=== PATIENT | male | born 1980 | race Two or more races ===

== ENCOUNTER 2017-07-28 10:17 | Inpatient (IN) | payer OTHER ==
[2017-07-28 11:46] VITALS: BMI 25.8
--- NOTE | 2017-07-28 14:38 | HP ---
CIWA Score - CIWA Score Nausea/Vomitin Muscle Tremors: 3 Anxiety: 3 Agitation: 3 Paroxysmal Sweats: 2 Orientation: 0-Oriented Tacttile Disturbances: 2-Mild Itch/Numbness/Burn Auditory Disturbances: 2-Mild Harshness/Frighten Visual Disturbances: 1-Very Mild Sensitivity Headache: 2-Mild CIWA-Ar Total Score: 21 Admission ROS BHS - HPI Chief Complaint: i need help to stop drinking alcohol,cocaine,marijuana Allergies/Adverse Reactions: Allergies Allergy/AdvReac Type Severity Reaction Status Date / Time No Known Allergies Allergy Verified 07/28/17 14:23 History of Present Illness: this 36 years old male with alcohol,cocaine and marijuana dependence,seeking detox,last treatment [facility] 06/22 bipolar disorder nicotine dependence weight loss no significant period of sobriety Exam Limitations: No Limitations - Ebola screening Have you traveled outside of the country in the last 21 days: No Have you been sick,other than usual withdrawal symptoms: No - Review of Systems Constitutional: Loss of Appetite, Malaise, Night Sweats, Changes in sleep, Weakness, Unintentional Wgt. Loss EENT: reports: Tearing, Nose Congestion Respiratory: reports: No Symptoms reported Cardiac: reports: Palpitations GI: reports: Diarrhea, Nausea, Vomiting, Abdominal cramping : reports: No Symptoms Reported Musculoskeletal: reports: Back Pain, Muscle Pain Integumentary: reports: Dryness Neuro: reports: Headache, Tremors Endocrine: reports: No Symptoms Reported Hematology: reports: No Symptoms Reported Psychiatric: reports: No Sypmtoms Reported, Judgement Intact, Mood/Affect Appropiate, other (bipolar disorder) Patient History - Patient Medical History Hx Anemia: No Hx Asthma: No Hx Chronic Obstructive Pulmonary Disease (COPD): No Hx Cancer: No Hx Cardiac Disorders: No Hx Congestive Heart Failure: No Hx Hypertension: No Hx Hypercholesterolemia: No Hx Pacemaker: No HX Cerebrovascular Accident: No Hx Seizures: No Hx Dementia: No Hx Diabetes: No Hx Gastrointestinal Disorders: No Hx Liver Disease: No Hx Genitourinary Disorders: No Hx Sexually Transmitted Disorders: No Hx Renal Disease (ESRD): No Hx Thyroid Disease: No Hx Human Immunodeficiency Virus (HIV): No (negative last 06/22) Hx Hepatitis C: No Hx Depression: Yes Hx Suicide Attempt: No Hx Bipolar Disorder: Yes Hx Schizophrenia: No Other Medical History: no suicidal,no homicidal - Patient Surgical History Past Surgical History: No Hx Neurologic Surgery: No Hx Cataract Extraction: No Hx Cardiac Surgery: No Hx Lung Surgery: No Hx Breast Surgery: No Hx Breast Biopsy: No Hx Abdominal Surgery: No Hx Appendectomy: No Hx Cholecystectomy: No Hx Genitourinary Surgery: No Hx Section: No Hx Orthopedic Surgery: No Anesthesia Reaction: No - PPD History Previous Implant?: Yes Documented Results: Negative w/o proof Implanted On Prior [facility] Admission?: Yes Date: 10/19/14 PPD to be Administered?: Yes - Smoking Cessation Smoking history: Current every day smoker Have you smoked in the past 12 months: Yes Aproximately how many cigarettes per day: 10 Cigars Per Day: 0 Hx Chewing Tobacco Use: No Initiated information on smoking cessation: Yes 'Breaking Loose' booklet given: 07/28/17 - Substance & Tx. History Hx Alcohol Use: Yes Hx Substance Use: Yes Substance Use Type: Alcohol, Cocaine, Marijuana Hx Substance Use Treatment: Yes ([facility] 06/22) - Substances Abused Alcohol Route: Oral Frequency: Daily Amount used: 2 6PKS BEER Age of first use: 13 Date of Last Use: 07/28/17 Crack Route: Smoking Frequency: Daily Amount used: $100-150 Age of first use: 28 Date of Last Use: 07/27/17 Marijuana/Hashish Route: Smoking Frequency: Daily Amount used: $100 Age of first use: 13 Date of Last Use: 07/28/17 Family Disease History - Family Disease History Family Disease History: [place]: Grandparent, Other: Father (,), Mother ( depression,dsa) Admission Physical Exam S - Vital Signs Vital Signs: Vital Signs - 24 hr 07/28/17 11:44 Temperature 97.1 F L Pulse Rate 88 Respiratory 18 Rate Blood Pressure 114/67 - Physical General Appearance: Yes: Moderate Distress, Tremorous, Irritable, Sweating, Anxious HEENTM: Yes: Within Normal Limits, Normal ENT Inspection, Normocephalic, ELYSE Respiratory: Yes: Lungs Clear, Normal Breath Sounds, No Respiratory Distress Neck: Yes: Within Normal Limits, Supple, Trachea in good position Breast: Yes: Within Normal Limits Cardiology: Yes: Within Normal Limits, Regular Rhythm, Regular Rate, S1, S2 Abdominal: Yes: Normal Bowel Sounds, Non Tender, Flat, Soft, Pulsatile Mass Genitourinary: Yes: Within Normal Limits Back: Yes: Muscle Spasm Extremities: Yes: Normal Range of Motion, Tremors 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, Fully Oriented, Alert, Motor Strength 5/5, Normal Response Integumentary: Yes: Dry Lymphatic: Yes: Within Normal Limits - Diagnostic (1) Alcohol dependence with uncomplicated withdrawal Current Visit: Yes Status: Acute (2) Cannabis dependence Current Visit: No Status: Chronic (3) Cocaine dependence Current Visit: No Status: Chronic (4) Weight loss Current Visit: Yes Status: Acute (5) Nicotine dependence Current Visit: Yes Status: Acute (6) Bipolar disorder Current Visit: Yes Status: Acute Cleared for Admission [facility] - Detox or Rehab [facility] Level of Care: Medically Managed Detox Regimen/Protocol: Librium [facility] Breath Alcohol Content Breath Alcohol Content: 0 Urine Drug Screen - Results Drug Screen Negative: No Urine Drug Screen Results: THC-Marijuana, LEONIDAS-Cocaine, TCA-Tricyclic Antidepress
[2017-07-28] MEDS ORDERED: MENTHOL/PHENOL 1 EACH UD MM PRN (14:46)
[2017-07-28] MEDS ORDERED: MAGNESIUM HYDROX 2400MG/30ML ORAL SUSPENSION 30 ML CUP PO PRN (14:46)
[2017-07-28] MEDS ORDERED: chlordiazePOXIDE HCL 25 MG CAPSULE PO PRN (14:46)
[2017-07-28] MEDS ORDERED: P-EPHED 60MG/TRIPROLIDI 2.5MG TABLET PO PRN (14:46)
[2017-07-28] MEDS ORDERED: ACETAMINOPHEN 325 MG TABLET (FP) PO PRN (14:46)
[2017-07-28] MEDS ORDERED: MAGNESIUM CITRATE 300 ML BOTTLE PO PRN (14:46)
[2017-07-28] MEDS ORDERED: IBUPROFEN 400 MG TABLET (FP) PO PRN (14:46)
[2017-07-28] MEDS ORDERED: guaiFENesin/D-METHORPHAN HB 10 ML UNIT-DOSE CUPS PO PRN (14:46)
[2017-07-28] MEDS ORDERED: LOPERAMIDE HCL 2 MG CAPSULE PO PRN (14:46)
[2017-07-28] MEDS ORDERED: MAG HYDROX/AL HYDROX/SIMETH 30 ML UNIT-DOSE CUP PO PRN (14:46)
[2017-07-28] MEDS ORDERED: NICOTINE POLACRILEX 2 MG GUM BUC PRN (14:46)
[2017-07-28] MEDS ORDERED: chlordiazePOXIDE HCL 25 MG CAPSULE PO ONE (14:57)
[2017-07-28] MEDS: NICOTINE 21 MG/24 HOURS TOPICAL PATCH TD SCH (16:59)
[2017-07-28] MEDS: chlordiazePOXIDE HCL 25 MG CAPSULE PO SCH ×2 (16:59→22:33)
[2017-07-28 17:13] LABS: URINE APPEARANCE SLCLOUDY; URINE BILIRUBIN NEGATIVE (NEGATIVE); URINE BLOOD NEGATIVE (NEGATIVE); URINE COLOR YELLOW; URINE GLUCOSE (UA) NEGATIVE (NEGATIVE); URINE KETONE NEGATIVE (NEGATIVE); URINE NITRITE NEGATIVE (NEGATIVE); URINE PROTEIN NEGATIVE (NEGATIVE); URINE UROBILINOGEN NEGATIVE mg/dL (0.2-1.0)
[2017-07-28 22:23] LABS: URINE LEUK ESTERASE Negative (NEGATIVE)
[2017-07-28] MEDS: THIAMINE HCL 100 MG TABLET (FP) PO SCH (22:33)
[2017-07-28] MEDS: diphenhydrAMINE HCL 50 MG CAPSULE PO PRN (22:33)
[2017-07-29 00:50] LABS: HIV 1 & 2 AB NEGATIVE; HIV 1 AGp24 NEGATIVE
[2017-07-29] MEDS: chlordiazePOXIDE HCL 25 MG CAPSULE PO SCH ×4 (05:25→22:25)
[2017-07-29 10:12] LABS: MCH 29.9 pg (25.7-33.7); MCHC 33.5 g/dl (32.0-35.9); MEAN CELL VOLUME 89.1 fl (80-96); MEAN PLT VOLUME 9.6 fl (7.5-11.1); PLATELET COUNT 199 K/MM3 (134-434); RDW 14.2 % (11.9-15.9); WHITE BLOOD COUNT 6.8 K/mm3 (4.0-10.0)
[2017-07-29 10:43] LABS: ALK PHOS 65 U/L (45-117); ANION GAP 12 (8-16); BILIRUBIN,TOTAL 0.6 mg/dL (0.2-1.0); CALCIUM 8.6 mg/dL (8.5-10.1); CO2 25 mmol/L (21-32); CREATININE 1.4 mg/dL (0.7-1.3); GLUCOSE,RANDOM 114 mg/dL (74-106); SGOT/AST 10 U/L (15-37); SGPT/ALT 26 U/L (12-78); TOT PROT 7.4 g/dl (6.4-8.2)
[2017-07-29] MEDS: NICOTINE 21 MG/24 HOURS TOPICAL PATCH TD SCH (10:50)
[2017-07-29] MEDS: PRENATAL VITAMINS W/ FOLIC ACID TABLET (FP) PO SCH (10:50)
--- NOTE | 2017-07-29 10:56 | PN ---
S CIWA - CIWA Score Nausea/Vomitin Muscle Tremors: 3 Anxiety: 3 Agitation: 2 Paroxysmal Sweats: 1-Minimal Palms Moist Orientation: 0-Oriented Tacttile Disturbances: 1-Very Mild Itch/Numbness Auditory Disturbances: 1-Very Mild Visual Disturbances: 0-None Headache: 2-Mild CIWA-Ar Total Score: 16 BHS Progress Note (SOAP) Subjective: alert,irritable,anxious,interrupted sleep,tremor Objective: 07/29/17 10:53 Vital Signs Temperature 96.6 F L 07/29/17 10:18 Pulse Rate 93 H 07/29/17 10:18 Respiratory Rate 18 07/29/17 10:18 Blood Pressure 111/76 07/29/17 10:18 O2 Sat by Pulse Oximetry (%) ekg nsr inverted t in 3 no chest pain,no sob,no dizziness Laboratory Last Values WBC 6.8 K/mm3 (4.0-10.0) 07/29/17 05:30 RBC 5.26 M/mm3 (4.00-5.60) 07/29/17 05:30 Hgb 15.7 GM/dL (11.7-16.9) 07/29/17 05:30 Hct 46.8 % (35.4-49) 07/29/17 05:30 MCV 89.1 fl (80-96) 07/29/17 05:30 MCH 29.9 pg (25.7-33.7) 07/29/17 05:30 MCHC 33.5 g/dl (32.0-35.9) 07/29/17 05:30 RDW 14.2 % (11.9-15.9) 07/29/17 05:30 Plt Count 199 K/MM3 (134-434) 07/29/17 05:30 MPV 9.6 fl (7.5-11.1) 07/29/17 05:30 Urine Color Yellow 07/28/17 15:30 Urine Appearance Slcloudy 07/28/17 15:30 Urine pH 5.0 (5.0-8.0) 07/28/17 15:30 Ur Specific [place] >= 1.030 (1.005-1.025) H 07/28/17 15:30 Urine Protein Negative (NEGATIVE) 07/28/17 15:30 Urine Glucose (UA) Negative (NEGATIVE) 07/28/17 15:30 Urine Ketones Negative (NEGATIVE) 07/28/17 15:30 Urine Blood Negative (NEGATIVE) 07/28/17 15:30 Urine Nitrite Negative (NEGATIVE) 07/28/17 15:30 Urine Bilirubin Negative (NEGATIVE) 07/28/17 15:30 Urine Urobilinogen Negative mg/dL (0.2-1.0) 07/28/17 15:30 Ur Leukocyte Esterase Negative (NEGATIVE) 07/28/17 15:30 HIV 1&2 Antibody Screen Negative 07/28/17 14:20 HIV P24 Antigen Negative 07/28/17 14:20 labs pending Assessment: 07/29/17 10:56 withdrawal symptom Plan: continue detox
--- NOTE | 2017-07-29 12:39 | CONSULT ---
[facility] Psychiatric Consult - Data Date of interview: 07/29/17 Admission source: [facility] Identifying data: Readmission to [facility] for this 36 y/o male seeking detox treatment on for alcohol,cocaine and cannabis dependence.Patient is single,father of five,homeless,unemployed and supported on food stamps. Substance Abuse History: Confirmed by patient. Smoking history: Current every day smoker. Have you smoked in the past 12 months: Yes. Aproximately how many cigarettes per day: 10. Cigars Per Day: 0. Hx Chewing Tobacco Use: No. Initiated information on smoking cessation: Yes. 'Breaking Loose' booklet given : 07/28/17. - Substance & Tx. History. Hx Alcohol Use: Yes. Hx Substance Use : Yes. Substance Use Type: Alcohol, Cocaine, Marijuana. Hx Substance Use Treatment: Yes ([facility] - Substances Abused. Alcohol. Route: Oral. Frequency: Daily. Amount used: 2 6PKS BEER. Age of first use: 13. Date of Last Use: 07/28/17. Crack. Route: Smoking. Frequency: Daily. Amount used: $100-150. Age of first use: 28. Date of Last Use: 07/27/17. Marijuana/Hashish. Route: Smoking. Frequency: Daily. Amount used: $100. Age of first use: 13. Date of Last Use: 07/28/17 Medical History: Patient endorses good general health. Psychiatric History: History of psychiatric hospitalizations at [facility] and [facility] [place].Patient reports the diagnosis of Bipolar Disorder.No recall of names of psychiatric medications.Has been off psychotropics for past two years.No OPD care.Mr Greene denies history of suicide attempts. Physical/Sexual Abuse/Trauma History: Patient denies. Additional Comment: Urine Drug Screen Results: THC-Marijuana, LEONIDAS-Cocaine, TCA- Tricyclic Antidepressant.Noted. Mental Status Exam - Mental Status Exam Alert and Oriented to: Time, Place, Person Cognitive Function: Good Patient Appearance: Well Groomed Mood: Hopeful, Euthymic Affect: Normal Range Patient Behavior: Appropriate, Cooperative Speech Pattern: Clear Voice Loudness: Normal Thought Process: Goal Oriented Thought Disorder: Not Present Hallucinations: Denies Suicidal Ideation: Denies Homicidal Ideation: Denies Insight/Judgement: Poor Sleep: Well (on benadryl as per self-report) Appetite: Good Muscle strength/Tone: Normal Gait/Station: Normal Psychiatric Findings - Problem List ([place] 1, 2,3) (1) Alcohol dependence with uncomplicated withdrawal Current Visit: Yes Status: Acute (2) Cannabis dependence Current Visit: Yes Status: Acute (3) Cocaine dependence Current Visit: Yes Status: Acute (4) Nicotine dependence Current Visit: Yes Status: Acute (5) Drug-induced mood disorder Current Visit: Yes Status: Suspected - Initial Treatment Plan Initial Treatment Plan: Psychoeducation.Detoxification in progress.Observation.
--- NOTE | 2017-07-29 20:32 | EKG ---
Test Reason : Blood Pressure : / mmHG Vent. Rate : 069 BPM Atrial Rate : 069 BPM P-R Int : 136 ms QRS Dur : 102 ms QT Int : 402 ms P-R-T Axes : 043 -21 000 degrees QTc Int : 430 ms NORMAL SINUS RHYTHM RSR' OR QR PATTERN IN V1 SUGGESTS RIGHT VENTRICULAR CONDUCTION DELAY VOLTAGE CRITERIA FOR LEFT VENTRICULAR HYPERTROPHY ABNORMAL ECG NO PREVIOUS ECGS AVAILABLE CLI Confirmed by VASQUEZ GARZA MD ([id number]) on 07/29/2017 8:31:55 PM Referred By: Confirmed By:VASQUEZ GARZA MD
[2017-07-29] MEDS: diphenhydrAMINE HCL 50 MG CAPSULE PO PRN (22:25)
[2017-07-29] MEDS: THIAMINE HCL 100 MG TABLET (FP) PO SCH (22:26)
[2017-07-30] MEDS: chlordiazePOXIDE HCL 25 MG CAPSULE PO SCH ×2 (05:26→11:29)
[2017-07-30] MEDS: NICOTINE 21 MG/24 HOURS TOPICAL PATCH TD SCH (11:30)
[2017-07-30] MEDS: PRENATAL VITAMINS W/ FOLIC ACID TABLET (FP) PO SCH (11:30)
--- NOTE | 2017-07-30 11:50 | PN ---
S CIWA - CIWA Score Nausea/Vomitin Muscle Tremors: 3 Anxiety: 3 Agitation: 2 Paroxysmal Sweats: 1-Minimal Palms Moist Orientation: 0-Oriented Tacttile Disturbances: 1-Very Mild Itch/Numbness Auditory Disturbances: 1-Very Mild Visual Disturbances: 0-None Headache: 2-Mild CIWA-Ar Total Score: 16 BHS Progress Note (SOAP) Subjective: alert,irritable,anxious,interrupted sleep Objective: 07/30/17 11:47 Vital Signs Temperature 97.0 F L 07/30/17 10:00 Pulse Rate 75 07/30/17 10:00 Respiratory Rate 18 07/30/17 10:00 Blood Pressure 109/75 07/30/17 10:00 O2 Sat by Pulse Oximetry (%) Laboratory Results - last 24 hr 07/29/17 05:30 RPR Titer Nonreactive 07/30/17 11:47 Laboratory Last Values WBC 6.8 K/mm3 (4.0-10.0) 07/29/17 05:30 RBC 5.26 M/mm3 (4.00-5.60) 07/29/17 05:30 Hgb 15.7 GM/dL (11.7-16.9) 07/29/17 05:30 Hct 46.8 % (35.4-49) 07/29/17 05:30 MCV 89.1 fl (80-96) 07/29/17 05:30 MCH 29.9 pg (25.7-33.7) 07/29/17 05:30 MCHC 33.5 g/dl (32.0-35.9) 07/29/17 05:30 RDW 14.2 % (11.9-15.9) 07/29/17 05:30 Plt Count 199 K/MM3 (134-434) 07/29/17 05:30 MPV 9.6 fl (7.5-11.1) 07/29/17 05:30 Sodium 140 mmol/L (136-145) 07/29/17 05:30 Potassium 4.3 mmol/L (3.5-5.1) 07/29/17 05:30 Chloride 103 mmol/L (98-107) 07/29/17 05:30 Carbon Dioxide 25 mmol/L (21-32) 07/29/17 05:30 Anion Gap 12 (8-16) 07/29/17 05:30 BUN 18 mg/dL (7-18) D 07/29/17 05:30 Creatinine 1.4 mg/dL (0.7-1.3) H D 07/29/17 05:30 Creat Clearance w eGFR 56.72 (>60) 07/29/17 05:30 Random Glucose 114 mg/dL (74-106) H D 07/29/17 05:30 Calcium 8.6 mg/dL (8.5-10.1) 07/29/17 05:30 Total Bilirubin 0.6 mg/dL (0.2-1.0) D 07/29/17 05:30 AST 10 U/L (15-37) L D 07/29/17 05:30 ALT 26 U/L (12-78) D 07/29/17 05:30 Alkaline Phosphatase 65 U/L (45-117) 07/29/17 05:30 Total Protein 7.4 g/dl (6.4-8.2) 07/29/17 05:30 Albumin 4.0 g/dl (3.4-5.0) 07/29/17 05:30 Urine Color Yellow 07/28/17 15:30 Urine Appearance Slcloudy 07/28/17 15:30 Urine pH 5.0 (5.0-8.0) 07/28/17 15:30 Ur Specific [place] >= 1.030 (1.005-1.025) H 07/28/17 15:30 Urine Protein Negative (NEGATIVE) 07/28/17 15:30 Urine Glucose (UA) Negative (NEGATIVE) 07/28/17 15:30 Urine Ketones Negative (NEGATIVE) 07/28/17 15:30 Urine Blood Negative (NEGATIVE) 07/28/17 15:30 Urine Nitrite Negative (NEGATIVE) 07/28/17 15:30 Urine Bilirubin Negative (NEGATIVE) 07/28/17 15:30 Urine Urobilinogen Negative mg/dL (0.2-1.0) 07/28/17 15:30 Ur Leukocyte Esterase Negative (NEGATIVE) 07/28/17 15:30 RPR Titer Nonreactive (NONREACTIVE) 07/29/17 05:30 HIV 1&2 Antibody Screen Negative 07/28/17 14:20 HIV P24 Antigen Negative 07/28/17 14:20 07/30/17 11:48 Assessment: 07/30/17 11:48 withdrawal symptom 07/30/17 11:50 Plan: continue detox
[2017-07-30] MEDS: chlordiazePOXIDE 5 MG CAPSULE PO SCH ×2 (18:03→22:06)
[2017-07-30] MEDS: THIAMINE HCL 100 MG TABLET (FP) PO SCH (22:06)
[2017-07-30] MEDS: diphenhydrAMINE HCL 50 MG CAPSULE PO PRN (22:08)
[2017-07-31] MEDS: chlordiazePOXIDE 5 MG CAPSULE PO SCH ×2 (07:49→10:53)
--- NOTE | 2017-07-31 10:50 | PN ---
S Progress Note (SOAP) Subjective: alert,irritable,anxious,interrupted sleep Objective: 07/31/17 10:49 Vital Signs Temperature 96.8 F L 07/31/17 10:00 Pulse Rate 71 07/31/17 10:00 Respiratory Rate 18 07/31/17 10:00 Blood Pressure 120/81 07/31/17 10:00 O2 Sat by Pulse Oximetry (%) withdrawal symptom Assessment: 07/31/17 10:49 withdrawal symptom Plan: continue detox,discharge in am
[2017-07-31] MEDS: PRENATAL VITAMINS W/ FOLIC ACID TABLET (FP) PO SCH (10:53)
[2017-07-31] MEDS: NICOTINE 21 MG/24 HOURS TOPICAL PATCH TD SCH (10:54)
[2017-07-31 13:18] VITALS: BP 120/71; PULSE 70; TEMP 96.7
--- NOTE | 2017-07-31 13:43 | PN ---
S Progress Note Note: PATIENT IS STABLE FOR DISCHARGE TODAY,FOLLOW UP WITH AFTER CARE PROGRAM ARRANGEMENT,SEEN BY COUNSELOR
--- NOTE | 2017-07-31 13:44 | DS ---
[facility] Detox Discharge Summary Admission Date: 07/28/17 Discharge Date: 07/31/17 - History Present History: Alcohol Dependence, Cannabis Dependence, Cocaine Dependence Additional Comments: FOLLOW UP WITH AFTER CARE PROGRAM ARRANGEMENT Pertinent Past History: NICOTINE DEPENDENCE WEIGHT LOSS - Physical Exam Results Vital Signs: Vital Signs Temperature 96.7 F L 07/31/17 13:15 Pulse Rate 70 07/31/17 13:15 Respiratory Rate 18 07/31/17 13:15 Blood Pressure 120/71 07/31/17 13:15 O2 Sat by Pulse Oximetry (%) Pertinent Admission Physical Exam Findings: WITHDRAWAL SYMPTOM - Treatment Hospital Course: Detox Protocol Followed, Detoxed Safely, Responded well, Discharged Condition Good Patient has Accepted a Rehab Referral to: DECLINED - Medication Discharge Medications: Ambulatory Orders NK [No Known Home Medication] 07/28/17 - Diagnosis (1) Alcohol dependence with uncomplicated withdrawal Current Visit: Yes Status: Acute (2) Cannabis dependence Current Visit: Yes Status: Acute (3) Cocaine dependence Current Visit: Yes Status: Acute (4) Weight loss Current Visit: Yes Status: Acute (5) Nicotine dependence Current Visit: Yes Status: Acute (6) Bipolar disorder Current Visit: Yes Status: Acute - AMA Did Patient Leave Against Medical Advice: No
[2017-07-31] MEDS ORDERED: chlordiazePOXIDE HCL 10 MG CAPSULE PO SCH (17:00)
== END 2017-07-31 14:00 | disposition home or self-care (01) | DRG 774 ==
LOC: YASAS 10:17 → Y6N 14:39
PROVIDERS: ADMIT Internal Medicine; ATTEND Internal Medicine
PROC: HZ2ZZZZ Detoxification Services for Substance Abuse Treatment (ICD-10-PCS; principal; 2017-07-28)
DX: F10.230 Alcohol dependence with withdrawal, uncomplicated (principal); F14.20 Cocaine dependence, uncomplicated; F12.20 Cannabis dependence, uncomplicated; F17.210 Nicotine dependence, cigarettes, uncomplicated; F31.9 Bipolar disorder, unspecified; Z87.898 Personal history of other specified conditions
CPT/HCPCS: 36415; 80053; 81003; 85027; 86593; 87389; 93005; 93010

== ENCOUNTER 2018-09-15 09:10 | Inpatient (IN) | payer OTHER ==
[2018-09-15 09:45] VITALS: BMI 26.4
--- NOTE | 2018-09-15 10:03 | HP ---
COWS - Scale Resting Pulse: 0= SD 80 or Below Sweatin= Chills/Flushing Restless Observation: 1= Difficult to Sit Still Pupil Size: 1= Pupils >than Normal Bone or Joint Aches: 2= Severe Diffuse Aches Runny Nose/ Eye Tearin= Runny Nose/Eyes GI Upset > 30mins: 2= Nausea/Diarrhea Tremor Observation: 2= Slight Tremor Visible Yawning Observation: 1= 1-2x During Session Anxiety or Irritability: 2=Irritable/Anxious Goose Flesh Skin: 0=Smooth Skin COWS Score: 14 CIWA Score Nausea/Vomitin Muscle Tremors: 2 Anxiety: 2 Agitation: 2 Paroxysmal Sweats: 1-Minimal Palms Moist Orientation: 0-Oriented Tacttile Disturbances: 1-Very Mild Itch/Numbness Auditory Disturbances: 1-Very Mild Visual Disturbances: 0-None Headache: 2-Mild CIWA-Ar Total Score: 13 - Admission Criteria [facility] Guidelines: Admission for Medically Managed Detox: Requires at least one of the followin. CIWA greater than 12 2. Seizures within the past 24 hours 3. Delirium tremens within the past 24 hours 4. Hallucinations within the past 24 hours 5. Acute intervention needed for co occurring medical disorder 6. Acute intervention needed for co occurring psychiatric disorder 7. Severe withdrawal that cannot be handled at a lower level of care (continued vomiting, continued diarrhea, abnormal vital signs) requiring intravenous medication and/or fluids 8. Patient presents the following: CIWA greater than 12 Admission Criteria Met: Admission criteria met Admission ROS [facility] Chief Complaint: i need help to stop using percocet,alcohol,cocaine marijuana Allergies/Adverse Reactions: Allergies Allergy/AdvReac Type Severity Reaction Status Date / Time No Known Allergies Allergy Verified 09/15/18 09:45 History of Present Illness: this 37 years old male with percocet,alcohol,cocane and marijuana dependence, seeking detox,withdrawal symptom,last detox [facility] 07/28/17 to 07/31/17 nicotine dependence bipolar disorder on no med ,non compliance no significant period of sobriety Exam Limitations: No Limitations - Ebola screening Have you traveled outside of the country in the last 21 days: No Have you had contact with anyone from an Ebola affected area: No Have you been sick,other than usual withdrawal symptoms: No - Review of Systems Constitutional: Chills, Loss of Appetite, Malaise, Night Sweats, Changes in sleep, Weakness EENT: reports: Tearing, Nose Congestion Respiratory: reports: No Symptoms reported Cardiac: reports: No Symptoms Reported GI: reports: Nausea, Poor Appetite, Abdominal cramping : reports: No Symptoms Reported Musculoskeletal: reports: Back Pain, Muscle Pain Integumentary: reports: Dryness Neuro: reports: Headache, Tremors Endocrine: reports: No Symptoms Reported Hematology: reports: No Symptoms Reported Psychiatric: reports: No Sypmtoms Reported, Judgement Intact, Mood/Affect Appropiate, Orientated x3, other (bipolar disorder) Patient History - Patient Medical History Hx Anemia: No Hx Asthma: No Hx Chronic Obstructive Pulmonary Disease (COPD): No Hx Cancer: No Hx Cardiac Disorders: No Hx Congestive Heart Failure: No Hx Hypertension: No Hx Hypercholesterolemia: No Hx Pacemaker: No HX Cerebrovascular Accident: No Hx Seizures: No Hx Dementia: No Hx Diabetes: No Hx Gastrointestinal Disorders: No Hx Liver Disease: No Hx Genitourinary Disorders: No Hx Sexually Transmitted Disorders: No Hx Renal Disease (ESRD): No Hx Thyroid Disease: No Hx Human Immunodeficiency Virus (HIV): No (negative last 06/22) Hx Hepatitis C: No Hx Depression: Yes Hx Suicide Attempt: No Hx Bipolar Disorder: Yes (no medication) Hx Schizophrenia: No Other Medical History: no suicidal,no homicidal - Patient Surgical History Past Surgical History: No Hx Neurologic Surgery: No Hx Cataract Extraction: No Hx Cardiac Surgery: No Hx Lung Surgery: No Hx Breast Surgery: No Hx Breast Biopsy: No Hx Abdominal Surgery: No Hx Appendectomy: No Hx Cholecystectomy: No Hx Genitourinary Surgery: No Hx Section: No Hx Orthopedic Surgery: No Anesthesia Reaction: No - PPD History Previous Implant?: Yes Documented Results: Negative w/o proof Implanted On Prior [facility] Admission?: Yes Date: 07/30/17 Results: 0 mm PPD to be Administered?: Yes - Smoking Cessation Smoking history: Current every day smoker Have you smoked in the past 12 months: Yes Aproximately how many cigarettes per day: 10 Cigars Per Day: 0 Hx Chewing Tobacco Use: No Initiated information on smoking cessation: Yes 'Breaking Loose' booklet given: 09/15/18 - Substance & Tx. History Hx Alcohol Use: Yes Hx Substance Use: Yes Substance Use Type: Alcohol, Cocaine, Heroin, Marijuana Hx Substance Use Treatment: Yes ([facility] 07/28/17 to 07/31/17 completed) - Substances Abused Crack Route: Smoking Frequency: Daily Amount used: $100-200 Age of first use: 29 Date of Last Use: 09/14/18 Percocet Route: Oral Frequency: Daily Amount used: 2-3 tabs. (10 mg.) Age of first use: 33 Date of Last Use: 09/15/18 Alcohol-beer/cognac Route: Oral Frequency: Daily Amount used: 3-4 (16 oz.)/1 pt. Age of first use: 13 Date of Last Use: 09/15/18 Marijuana Route: Smoking Frequency: Daily Amount used: $40 Age of first use: 11 Date of Last Use: 09/14/18 Family Disease History - Family Disease History Family Disease History: [place]: Grandparent, Other: Father (,), Mother ( depression,dsa) Admission Physical Exam [facility] - Vital Signs Vital Signs: Vital Signs - 24 hr 09/15/18 09:40 Temperature 97.2 F L Pulse Rate 75 Respiratory 18 Rate Blood Pressure 135/84 - Physical General Appearance: Yes: Moderate Distress, Tremorous, Irritable, Sweating, Anxious HEENTM: Yes: Normal ENT Inspection, ELYSE, Pharynx Normal Respiratory: Yes: Lungs Clear, Normal Breath Sounds, No Respiratory Distress Neck: Yes: Within Normal Limits, Supple, Trachea in good position Breast: Yes: Within Normal Limits Cardiology: Yes: Within Normal Limits, Regular Rhythm, Regular Rate, S1, S2 Abdominal: Yes: Within Normal Limits, Normal Bowel Sounds, Non Tender, Flat, Soft Genitourinary: Yes: Within Normal Limits Back: Yes: Within Normal Limits, Normal Inspection, Muscle Spasm Musculoskeletal: Yes: Back pain, Joint Stiffness, Muscle Pain Extremities: Yes: Tremors 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, Fully Oriented, Alert, Motor Strength 5/5 Integumentary: Yes: Dry Lymphatic: Yes: Within Normal Limits - Diagnostic (1) Opioid dependence with withdrawal Current Visit: Yes Status: Acute (2) Alcohol dependence with uncomplicated withdrawal Current Visit: No Status: Acute (3) Cannabis dependence Current Visit: No Status: Acute (4) Cocaine dependence Current Visit: No Status: Acute (5) Nicotine dependence Current Visit: No Status: Acute Cleared for Admission S - Detox or Rehab [facility] Level of Care: Medically Managed Detox Regimen/Protocol: Methadone/Librium [facility] Breath Alcohol Content Breath Alcohol Content: 0.011 Urine Drug Screen - Results Drug Screen Negative: No Urine Drug Screen Results: THC-Marijuana, LEONIDAS-Cocaine, OXY-Oxycodone
[2018-09-15] MEDS ORDERED: P-EPHED 60MG/TRIPROLIDI 2.5MG TABLET PO PRN (10:09)
[2018-09-15] MEDS ORDERED: MAGNESIUM CITRATE 300 ML BOTTLE PO PRN (10:09)
[2018-09-15] MEDS ORDERED: MAGNESIUM HYDROX 2400MG/30ML ORAL SUSPENSION 30 ML CUP PO PRN (10:09)
[2018-09-15] MEDS ORDERED: LOPERAMIDE HCL 2 MG CAPSULE PO PRN (10:09)
[2018-09-15] MEDS ORDERED: guaiFENesin/D-METHORPHAN HB 10 ML UNIT-DOSE CUPS PO PRN (10:09)
[2018-09-15] MEDS ORDERED: MAG HYDROX/AL HYDROX/SIMETH 30 ML UNIT-DOSE CUP PO PRN (10:09)
[2018-09-15] MEDS ORDERED: IBUPROFEN 400 MG TABLET (FP) PO PRN (10:09)
[2018-09-15] MEDS ORDERED: MENTHOL/PHENOL 1 EACH UD MM PRN (10:09)
[2018-09-15] MEDS ORDERED: chlordiazePOXIDE HCL 25 MG CAPSULE PO PRN (10:09)
[2018-09-15] MEDS ORDERED: METHADONE HCL 10 MG TABLET (FOR DETOX USE ONLY) PO ONE ×2 (10:30→23:00)
[2018-09-15] MEDS: chlordiazePOXIDE HCL 25 MG CAPSULE PO SCH ×3 (11:09→22:00)
[2018-09-15 17:37] LABS: URINE APPEARANCE CLEAR; URINE BILIRUBIN NEGATIVE (<2.0 mg/dL); URINE COLOR YELLOW; URINE GLUCOSE (UA) NEGATIVE (NEGATIVE); URINE KETONE NEGATIVE (NEGATIVE); URINE LEUK ESTERASE TRACE (NEGATIVE); URINE NITRITE NEGATIVE (NEGATIVE); URINE PROTEIN NEGATIVE (NEGATIVE); URINE UROBILINOGEN NEGATIVE mg/dL (0.2-1.0)
[2018-09-15 17:45] LABS: URINE BACTERIA RARE /hpf (NONE SEEN); URINE MUCUS FEW
[2018-09-15] MEDS: THIAMINE HCL 100 MG TABLET (FP) PO SCH (22:00)
[2018-09-15] MEDS ORDERED: MELATONIN 5 MG TABLETS PO PRN (22:00)
[2018-09-16] MEDS: chlordiazePOXIDE HCL 25 MG CAPSULE PO SCH ×4 (05:32→22:22)
[2018-09-16] MEDS ORDERED: METHADONE HCL 10 MG TABLET (FOR DETOX USE ONLY) PO SCH (10:00)
[2018-09-16] MEDS: PRENATAL VITAMINS W/ FOLIC ACID TABLET (FP) PO SCH (10:04)
[2018-09-16 11:02] LABS: HEMOGLOBIN 16.1 GM/dL (11.7-16.9); MCHC 32.7 g/dl (32.0-35.9); MEAN CELL VOLUME 88.7 fl (80-96); MEAN PLT VOLUME 9.6 fl (7.5-11.1); PLATELET COUNT 201 K/MM3 (134-434); RBC 5.53 M/mm3 (4.00-5.60); WHITE BLOOD COUNT 7.8 K/mm3 (4.0-10.0)
[2018-09-16 11:15] LABS: ALBUMIN 4.3 g/dl (3.4-5.0); ALK PHOS 80 U/L (45-117); ANION GAP 9 MMOL/L (8-16); BILIRUBIN,TOTAL 0.5 mg/dL (0.2-1); BLOOD UREA NITROGEN 19 mg/dL (7-18); CALCIUM 9.2 mg/dL (8.5-10.1); CHLORIDE 105 mmol/L (98-107); CO2 25 mmol/L (21-32); CREATININE 1.1 mg/dL (0.55-1.3); GLUCOSE,RANDOM 84 mg/dL (74-106); POTASSIUM 4.3 mmol/L (3.5-5.1); SGOT/AST 16 U/L (15-37); SGPT/ALT 27 U/L (13-61); SODIUM 139 mmol/L (136-145); TOT PROT 7.7 g/dl (6.4-8.2)
--- NOTE | 2018-09-16 11:27 | PN ---
[facility] CIWA - CIWA Score Nausea/Vomitin-Mild Nausea/No Vomiting Muscle Tremors: 3 Anxiety: 2 Agitation: 2 Paroxysmal Sweats: 1-Minimal Palms Moist Orientation: 0-Oriented Tacttile Disturbances: 0-None Auditory Disturbances: 0-None Visual Disturbances: 0-None Headache: 2-Mild CIWA-Ar Total Score: 11 BHS COWS - Scale Resting Pulse: 0= [place] 80 or Below Sweatin= Chills/Flushing Restless Observation: 0= Sits Still Pupil Size: 0= Normal to Room Light Bone or Joint Aches: 2= Severe Diffuse Aches Runny Nose/ Eye Tearin= Nasal Congestion GI Upset > 30mins: 1= Stomach Cramp Tremor Observation of Outstretched Hands: 1= Tremor [place], Not Seen Yawning Observation: 2= >3x During Session Anxiety or Irritability: 1=Feels Anxious/Irritable Goose Flesh Skin: 0=Smooth Skin COWS Score: 9 [facility] Progress Note (SOAP) Subjective: tremor sweat body aches anxiety restlessness Objective: 09/16/18 11:38 Vital Signs Temperature 96.6 F L 09/16/18 09:30 Pulse Rate 62 09/16/18 09:30 Respiratory Rate 20 09/16/18 09:30 Blood Pressure 100/67 09/16/18 09:30 O2 Sat by Pulse Oximetry (%) Laboratory Last Values WBC 7.8 K/mm3 (4.0-10.0) 09/16/18 06:00 RBC 5.53 M/mm3 (4.00-5.60) 09/16/18 06:00 Hgb 16.1 GM/dL (11.7-16.9) 09/16/18 06:00 Hct 49.0 % (35.4-49) 09/16/18 06:00 MCV 88.7 fl (80-96) 09/16/18 06:00 MCH 29.0 pg (25.7-33.7) 09/16/18 06:00 MCHC 32.7 g/dl (32.0-35.9) 09/16/18 06:00 RDW 14.0 % (11.9-15.9) 09/16/18 06:00 Plt Count 201 K/MM3 (134-434) 09/16/18 06:00 MPV 9.6 fl (7.5-11.1) 09/16/18 06:00 Sodium 139 mmol/L (136-145) 09/16/18 06:00 Potassium 4.3 mmol/L (3.5-5.1) 09/16/18 06:00 Chloride 105 mmol/L (98-107) 09/16/18 06:00 Carbon Dioxide 25 mmol/L (21-32) 09/16/18 06:00 Anion Gap 9 MMOL/L (8-16) 09/16/18 06:00 BUN 19 mg/dL (7-18) H 09/16/18 06:00 Creatinine 1.1 mg/dL (0.55-1.3) 09/16/18 06:00 Creat Clearance w eGFR > 60 (>60) 09/16/18 06:00 Random Glucose 84 mg/dL (74-106) 09/16/18 06:00 Calcium 9.2 mg/dL (8.5-10.1) 09/16/18 06:00 Total Bilirubin 0.5 mg/dL (0.2-1) 09/16/18 06:00 AST 16 U/L (15-37) 09/16/18 06:00 ALT 27 U/L (13-61) 09/16/18 06:00 Alkaline Phosphatase 80 U/L (45-117) 09/16/18 06:00 Total Protein 7.7 g/dl (6.4-8.2) 09/16/18 06:00 Albumin 4.3 g/dl (3.4-5.0) 09/16/18 06:00 Urine Color Yellow 09/15/18 17:00 Urine Appearance Clear 09/15/18 17:00 Urine pH 5.0 (5.0-8.0) 09/15/18 17:00 Ur Specific [place] 1.026 (1.010-1.035) 09/15/18 17:00 Urine Protein Negative (NEGATIVE) 09/15/18 17:00 Urine Glucose (UA) Negative (NEGATIVE) 09/15/18 17:00 Urine Ketones Negative (NEGATIVE) 09/15/18 17:00 Urine Blood Negative (NEGATIVE) 09/15/18 17:00 Urine Nitrite Negative (NEGATIVE) 09/15/18 17:00 Urine Bilirubin Negative (<2.0 mg/dL) 09/15/18 17:00 Urine Urobilinogen Negative mg/dL (0.2-1.0) 09/15/18 17:00 Ur Leukocyte Esterase Trace (NEGATIVE) 09/15/18 17:00 Urine WBC (Auto) <1 /hpf (3-5) 09/15/18 17:00 Urine RBC (Auto) None /hpf (0-3) 09/15/18 17:00 Urine Bacteria Rare /hpf (NONE SEEN) 09/15/18 17:00 Urine Mucus Few 09/15/18 17:00 RPR Titer Nonreactive (NONREACTIVE) 09/16/18 06:00 HIV 1&2 Antibody Screen Negative 09/15/18 10:30 HIV P24 Antigen Negative 09/15/18 10:30 lab noted Assessment: 09/16/18 11:39 withdrawal sx Plan: continue detox
[2018-09-16] MEDS ORDERED: FLU VACCINE QUAD 60 MCG/0.5 ML (MDV 18-19) IM ONE (12:00)
--- NOTE | 2018-09-16 14:44 | CONSULT ---
[facility] Psychiatric Consult - Data Date of interview: 09/16/18 Admission source: [facility] Identifying data: This is one of multiple admissions to [facility] for this 37 y/ o male seeking detoxification treatment, on , for alcohol, cocaine, opioid and cannabis dependence. Patient is single, father of five, homeless, unemployed and living without income. Substance Abuse History: Confirmed by the patient in this interview. Details in current [facility] report : Smoking history: Current every day smoker. Have you smoked in the past 12 months: Yes. Aproximately how many cigarettes per day: 10. Cigars Per Day: 0. Hx Chewing Tobacco Use: No. Initiated information on smoking cessation: Yes. 'Breaking Loose' booklet given: 09/15/18. - Substance & Tx. History. Hx Alcohol Use: Yes. Hx Substance Use: Yes. Substance Use Type : Alcohol, Cocaine, Heroin, Marijuana. Hx Substance Use Treatment: Yes ([facility] to 07/31/17 completed). - Substances Abused. Crack. Route: Smoking. Frequency: Daily. Amount used: $100-200. Age of first use: 29. Date of Last Use: 09/14/18. Percocet. Route: Oral. Frequency: Daily. Amount used: 2-3 tabs. (10 mg.). Age of first use: 33. Date of Last Use: 09/15. Alcohol-beer/cognac. Route: Oral. Frequency: Daily. Amount used: 3- 4 (16 oz.)/1 pt. Age of first use: 13. Date of Last Use: 09/15/18. Marijuana. Route: Smoking. Frequency: Daily. Amount used: $40. Age of first use: 11. Date of Last Use: 09/14/18 Medical History: Patient denies medical problems. Psychiatric History: History of multiple psychiatric hospitalizations ([facility], [facility] and [facility]). Patient states that he has been diagnosed with Bipolar Disorder. Used to be medicated with trazodone and seroquel. Off psychotropic medications for several months. Totally lost to psychiatric OPD care. Mr Greene denies history of suicide attempts. Physical/Sexual Abuse/Trauma History: Patient denies. Additional Comment: Urine Drug Screen Results: THC-Marijuana, LEONIDAS-Cocaine, OXY- Oxycodone. Noted. Mental Status Exam - Mental Status Exam Alert and Oriented to: Time, Place, Person Cognitive Function: Good Patient Appearance: Well Groomed Mood: Nervous, Withdrawn, Hopeful Affect: Mood Congruent Patient Behavior: Fatigued, Cooperative Speech Pattern: Clear, Appropriate Voice Loudness: Normal Thought Process: Goal Oriented Thought Disorder: Not Present Hallucinations: Denies Suicidal Ideation: Denies Homicidal Ideation: Denies Insight/Judgement: Poor Sleep: Poorly, Difficulty falling asleep Appetite: Good Muscle strength/Tone: Normal Gait/Station: Normal Psychiatric Findings - Problem List ([place] 1, 2,3) (1) Opioid dependence with withdrawal Current Visit: Yes Status: Acute (2) Alcohol dependence with uncomplicated withdrawal Current Visit: Yes Status: Acute (3) Cannabis dependence Current Visit: Yes Status: Acute (4) Cocaine dependence Current Visit: Yes Status: Chronic (5) Nicotine dependence Current Visit: Yes Status: Chronic (6) Drug-induced mood disorder Current Visit: Yes Status: Chronic (7) Insomnia Current Visit: Yes Status: Chronic - Initial Treatment Plan Initial Treatment Plan: Psychoeducation. Sleep hygiene. Detoxification. Seroquel 100 mg po hs. Side effects/benefits discussed with the patient. Consent (verbal) granted to MD. Spencer.
[2018-09-16] MEDS: THIAMINE HCL 100 MG TABLET (FP) PO SCH (22:22)
[2018-09-16] MEDS: QUEtiapine FUMARATE 100 MG TABLET (FP) PO SCH (22:22)
[2018-09-17] MEDS: chlordiazePOXIDE HCL 25 MG CAPSULE PO SCH (06:05)
[2018-09-17] MEDS: PRENATAL VITAMINS W/ FOLIC ACID TABLET (FP) PO SCH (10:46)
[2018-09-17] MEDS: chlordiazePOXIDE 5 MG CAPSULE PO SCH ×3 (10:46→22:02)
[2018-09-17] MEDS: METHADONE HCL 5 MG TABLET (FOR DETOX USE ONLY) PO SCH (10:47)
[2018-09-17] MEDS ORDERED: METHOCARBAMOL 500 MG TABLET PO ONE (11:18)
--- NOTE | 2018-09-17 16:30 | PN ---
[facility] CIWA - CIWA Score Nausea/Vomitin-Mild Nausea/No Vomiting Muscle Tremors: 3 Anxiety: 2 Agitation: 2 Paroxysmal Sweats: 1-Minimal Palms Moist Orientation: 0-Oriented Tacttile Disturbances: 0-None Auditory Disturbances: 0-None Visual Disturbances: 0-None Headache: 2-Mild CIWA-Ar Total Score: 11 BHS COWS - Scale Resting Pulse: 1= [place] 81-100 Sweatin= Chills/Flushing Restless Observation: 0= Sits Still Pupil Size: 0= Normal to Room Light Bone or Joint Aches: 1= Mild Discomfort Runny Nose/ Eye Tearin= None GI Upset > 30mins: 2= Nausea/Diarrhea Tremor Observation of Outstretched Hands: 1= Tremor [place], Not Seen Yawning Observation: 1= 1-2x During Session Anxiety or Irritability: 1=Feels Anxious/Irritable Goose Flesh Skin: 0=Smooth Skin COWS Score: 8 S Progress Note (SOAP) Subjective: body aches joints pain sweat tremor Objective: 09/17/18 16:29 Vital Signs Temperature 97.9 F 09/17/18 13:32 Pulse Rate 93 H 09/17/18 13:32 Respiratory Rate 20 09/17/18 13:32 Blood Pressure 133/80 09/17/18 13:32 O2 Sat by Pulse Oximetry (%) Laboratory Last Values WBC 7.8 K/mm3 (4.0-10.0) 09/16/18 06:00 RBC 5.53 M/mm3 (4.00-5.60) 09/16/18 06:00 Hgb 16.1 GM/dL (11.7-16.9) 09/16/18 06:00 Hct 49.0 % (35.4-49) 09/16/18 06:00 MCV 88.7 fl (80-96) 09/16/18 06:00 MCH 29.0 pg (25.7-33.7) 09/16/18 06:00 MCHC 32.7 g/dl (32.0-35.9) 09/16/18 06:00 RDW 14.0 % (11.9-15.9) 09/16/18 06:00 Plt Count 201 K/MM3 (134-434) 09/16/18 06:00 MPV 9.6 fl (7.5-11.1) 09/16/18 06:00 Sodium 139 mmol/L (136-145) 09/16/18 06:00 Potassium 4.3 mmol/L (3.5-5.1) 09/16/18 06:00 Chloride 105 mmol/L (98-107) 09/16/18 06:00 Carbon Dioxide 25 mmol/L (21-32) 09/16/18 06:00 Anion Gap 9 MMOL/L (8-16) 09/16/18 06:00 BUN 19 mg/dL (7-18) H 09/16/18 06:00 Creatinine 1.1 mg/dL (0.55-1.3) 09/16/18 06:00 Creat Clearance w eGFR > 60 (>60) 09/16/18 06:00 Random Glucose 84 mg/dL (74-106) 09/16/18 06:00 Calcium 9.2 mg/dL (8.5-10.1) 09/16/18 06:00 Total Bilirubin 0.5 mg/dL (0.2-1) 09/16/18 06:00 AST 16 U/L (15-37) 09/16/18 06:00 ALT 27 U/L (13-61) 09/16/18 06:00 Alkaline Phosphatase 80 U/L (45-117) 09/16/18 06:00 Total Protein 7.7 g/dl (6.4-8.2) 09/16/18 06:00 Albumin 4.3 g/dl (3.4-5.0) 09/16/18 06:00 Urine Color Yellow 09/15/18 17:00 Urine Appearance Clear 09/15/18 17:00 Urine pH 5.0 (5.0-8.0) 09/15/18 17:00 Ur Specific [place] 1.026 (1.010-1.035) 09/15/18 17:00 Urine Protein Negative (NEGATIVE) 09/15/18 17:00 Urine Glucose (UA) Negative (NEGATIVE) 09/15/18 17:00 Urine Ketones Negative (NEGATIVE) 09/15/18 17:00 Urine Blood Negative (NEGATIVE) 09/15/18 17:00 Urine Nitrite Negative (NEGATIVE) 09/15/18 17:00 Urine Bilirubin Negative (<2.0 mg/dL) 09/15/18 17:00 Urine Urobilinogen Negative mg/dL (0.2-1.0) 09/15/18 17:00 Ur Leukocyte Esterase Trace (NEGATIVE) 09/15/18 17:00 Urine WBC (Auto) <1 /hpf (3-5) 09/15/18 17:00 Urine RBC (Auto) None /hpf (0-3) 09/15/18 17:00 Urine Bacteria Rare /hpf (NONE SEEN) 09/15/18 17:00 Urine Mucus Few 09/15/18 17:00 RPR Titer Nonreactive (NONREACTIVE) 09/16/18 06:00 HIV 1&2 Antibody Screen Negative 09/15/18 10:30 HIV P24 Antigen Negative 09/15/18 10:30 lab noted Assessment: 09/17/18 16:30 withdrawal sx Plan: continue detox
[2018-09-17] MEDS: THIAMINE HCL 100 MG TABLET (FP) PO SCH (22:02)
[2018-09-17] MEDS: QUEtiapine FUMARATE 100 MG TABLET (FP) PO SCH (22:02)
[2018-09-18] MEDS: chlordiazePOXIDE 5 MG CAPSULE PO SCH (05:35)
[2018-09-18] MEDS: METHADONE HCL 5 MG TABLET (FOR DETOX USE ONLY) PO SCH (10:32)
[2018-09-18] MEDS: PRENATAL VITAMINS W/ FOLIC ACID TABLET (FP) PO SCH (10:32)
[2018-09-18] MEDS: chlordiazePOXIDE HCL 10 MG CAPSULE PO SCH ×3 (10:33→22:05)
[2018-09-18] MEDS: hydrOXYzine PAMOATE 25 MG CAPSULE (FP) PO PRN (14:13)
--- NOTE | 2018-09-18 14:48 | PN ---
S Progress Note Note: PATIENT CONTINUES WITH DETOX REGIMEN. C/O SLEEP DISTURBANCE, MILD NIGHT SWEATS. Vital Signs Temperature 98.4 F 09/18/18 13:06 Pulse Rate 70 09/18/18 13:06 Respiratory Rate 18 09/18/18 13:06 Blood Pressure 133/89 09/18/18 13:06 O2 Sat by Pulse Oximetry (%) Laboratory Tests 09/15/18 09/15/18 09/16/18 10:30 17:00 06:00 WBC 7.8 RBC 5.53 Hgb 16.1 Hct 49.0 MCV 88.7 MCH 29.0 MCHC 32.7 RDW 14.0 Plt Count 201 MPV 9.6 Sodium Potassium Chloride Carbon Dioxide Anion Gap BUN Creatinine Creat Clearance w eGFR Random Glucose Calcium Total Bilirubin AST ALT Alkaline Phosphatase Total Protein Albumin Urine Color Yellow Urine Appearance Clear Urine pH 5.0 Ur Specific [place] 1.026 Urine Protein Negative Urine Glucose (UA) Negative Urine Ketones Negative Urine Blood Negative Urine Nitrite Negative Urine Bilirubin Negative Urine Urobilinogen Negative Ur Leukocyte Esterase Trace Urine WBC (Auto) <1 Urine RBC (Auto) None Urine Bacteria Rare Urine Mucus Few RPR Titer HIV 1&2 Antibody Screen Negative HIV P24 Antigen Negative 09/16/18 09/16/18 06:00 06:00 WBC RBC Hgb Hct MCV MCH MCHC RDW Plt Count MPV Sodium 139 Potassium 4.3 Chloride 105 Carbon Dioxide 25 Anion Gap 9 BUN 19 H Creatinine 1.1 Creat Clearance w eGFR > 60 Random Glucose 84 Calcium 9.2 Total Bilirubin 0.5 AST 16 ALT 27 Alkaline Phosphatase 80 Total Protein 7.7 Albumin 4.3 Urine Color Urine Appearance Urine pH Ur Specific [place] Urine Protein Urine Glucose (UA) Urine Ketones Urine Blood Urine Nitrite Urine Bilirubin Urine Urobilinogen Ur Leukocyte Esterase Urine WBC (Auto) Urine RBC (Auto) Urine Bacteria Urine Mucus RPR Titer Nonreactive HIV 1&2 Antibody Screen HIV P24 Antigen PE; ALERT AND ORIENTED X 3 SKIN WARM AND DRY EXT FULL ROM AMB AD SHARLENE A/P WITHDRAWAL SX CONTINUE DETOX ENCOURAGE FLUIDS CONTINUE TO MONITOR CLINICALLY
[2018-09-18] MEDS: ACETAMINOPHEN 325 MG TABLET (FP) PO PRN (17:36)
[2018-09-18] MEDS: QUEtiapine FUMARATE 100 MG TABLET (FP) PO SCH (22:05)
[2018-09-18] MEDS: THIAMINE HCL 100 MG TABLET (FP) PO SCH (22:05)
[2018-09-19] MEDS: chlordiazePOXIDE HCL 10 MG CAPSULE PO SCH (05:36)
[2018-09-19] MEDS: ACETAMINOPHEN 325 MG TABLET (FP) PO PRN (08:57)
[2018-09-19] MEDS ORDERED: METHADONE HCL 10 MG TABLET (FOR DETOX USE ONLY) PO SCH (10:00)
[2018-09-19] MEDS: PRENATAL VITAMINS W/ FOLIC ACID TABLET (FP) PO SCH (10:16)
--- NOTE | 2018-09-19 12:03 | PN ---
[facility] Progress Note (SOAP) Subjective: Reports feeling much better, no more withdrawal sx Objective: 09/19/18 12:02 Vital Signs Temperature 97.2 F L 09/19/18 10:38 Pulse Rate 101 H 09/19/18 10:38 Respiratory Rate 18 09/19/18 10:38 Blood Pressure 122/82 09/19/18 10:38 O2 Sat by Pulse Oximetry (%) Laboratory Last Values WBC 7.8 K/mm3 (4.0-10.0) 09/16/18 06:00 RBC 5.53 M/mm3 (4.00-5.60) 09/16/18 06:00 Hgb 16.1 GM/dL (11.7-16.9) 09/16/18 06:00 Hct 49.0 % (35.4-49) 09/16/18 06:00 MCV 88.7 fl (80-96) 09/16/18 06:00 MCH 29.0 pg (25.7-33.7) 09/16/18 06:00 MCHC 32.7 g/dl (32.0-35.9) 09/16/18 06:00 RDW 14.0 % (11.9-15.9) 09/16/18 06:00 Plt Count 201 K/MM3 (134-434) 09/16/18 06:00 MPV 9.6 fl (7.5-11.1) 09/16/18 06:00 Sodium 139 mmol/L (136-145) 09/16/18 06:00 Potassium 4.3 mmol/L (3.5-5.1) 09/16/18 06:00 Chloride 105 mmol/L (98-107) 09/16/18 06:00 Carbon Dioxide 25 mmol/L (21-32) 09/16/18 06:00 Anion Gap 9 MMOL/L (8-16) 09/16/18 06:00 BUN 19 mg/dL (7-18) H 09/16/18 06:00 Creatinine 1.1 mg/dL (0.55-1.3) 09/16/18 06:00 Creat Clearance w eGFR > 60 (>60) 09/16/18 06:00 Random Glucose 84 mg/dL (74-106) 09/16/18 06:00 Calcium 9.2 mg/dL (8.5-10.1) 09/16/18 06:00 Total Bilirubin 0.5 mg/dL (0.2-1) 09/16/18 06:00 AST 16 U/L (15-37) 09/16/18 06:00 ALT 27 U/L (13-61) 09/16/18 06:00 Alkaline Phosphatase 80 U/L (45-117) 09/16/18 06:00 Total Protein 7.7 g/dl (6.4-8.2) 09/16/18 06:00 Albumin 4.3 g/dl (3.4-5.0) 09/16/18 06:00 Urine Color Yellow 09/15/18 17:00 Urine Appearance Clear 09/15/18 17:00 Urine pH 5.0 (5.0-8.0) 09/15/18 17:00 Ur Specific [place] 1.026 (1.010-1.035) 09/15/18 17:00 Urine Protein Negative (NEGATIVE) 09/15/18 17:00 Urine Glucose (UA) Negative (NEGATIVE) 09/15/18 17:00 Urine Ketones Negative (NEGATIVE) 09/15/18 17:00 Urine Blood Negative (NEGATIVE) 09/15/18 17:00 Urine Nitrite Negative (NEGATIVE) 09/15/18 17:00 Urine Bilirubin Negative (<2.0 mg/dL) 09/15/18 17:00 Urine Urobilinogen Negative mg/dL (0.2-1.0) 09/15/18 17:00 Ur Leukocyte Esterase Trace (NEGATIVE) 09/15/18 17:00 Urine WBC (Auto) <1 /hpf (3-5) 09/15/18 17:00 Urine RBC (Auto) None /hpf (0-3) 09/15/18 17:00 Urine Bacteria Rare /hpf (NONE SEEN) 09/15/18 17:00 Urine Mucus Few 09/15/18 17:00 RPR Titer Nonreactive (NONREACTIVE) 09/16/18 06:00 HIV 1&2 Antibody Screen Negative 09/15/18 10:30 HIV P24 Antigen Negative 09/15/18 10:30 Labs noted Assessment: 09/19/18 12:03 Resolving withdrawal sx Plan: Continue to monitor, encourage to complete detox regimen
[2018-09-19] MEDS: hydrOXYzine PAMOATE 25 MG CAPSULE (FP) PO PRN (12:40)
[2018-09-19 14:12] VITALS: BP 142/91; PULSE 87; TEMP 99.2
--- NOTE | 2018-09-19 15:45 | DS ---
[facility] Detox Discharge Summary Admission Date: 09/15/18 Discharge Date: 09/19/18 - History Present History: Alcohol Dependence, Opioid Dependence Pertinent Past History: Denies - Physical Exam Results Vital Signs: Vital Signs Temperature 99.2 F 09/19/18 14:12 Pulse Rate 87 09/19/18 14:12 Respiratory Rate 18 09/19/18 14:12 Blood Pressure 142/91 09/19/18 14:12 O2 Sat by Pulse Oximetry (%) Pertinent Admission Physical Exam Findings: Withdrawal sx Laboratory Last Values WBC 7.8 K/mm3 (4.0-10.0) 09/16/18 06:00 RBC 5.53 M/mm3 (4.00-5.60) 09/16/18 06:00 Hgb 16.1 GM/dL (11.7-16.9) 09/16/18 06:00 Hct 49.0 % (35.4-49) 09/16/18 06:00 MCV 88.7 fl (80-96) 09/16/18 06:00 MCH 29.0 pg (25.7-33.7) 09/16/18 06:00 MCHC 32.7 g/dl (32.0-35.9) 09/16/18 06:00 RDW 14.0 % (11.9-15.9) 09/16/18 06:00 Plt Count 201 K/MM3 (134-434) 09/16/18 06:00 MPV 9.6 fl (7.5-11.1) 09/16/18 06:00 Sodium 139 mmol/L (136-145) 09/16/18 06:00 Potassium 4.3 mmol/L (3.5-5.1) 09/16/18 06:00 Chloride 105 mmol/L (98-107) 09/16/18 06:00 Carbon Dioxide 25 mmol/L (21-32) 09/16/18 06:00 Anion Gap 9 MMOL/L (8-16) 09/16/18 06:00 BUN 19 mg/dL (7-18) H 09/16/18 06:00 Creatinine 1.1 mg/dL (0.55-1.3) 09/16/18 06:00 Creat Clearance w eGFR > 60 (>60) 09/16/18 06:00 Random Glucose 84 mg/dL (74-106) 09/16/18 06:00 Calcium 9.2 mg/dL (8.5-10.1) 09/16/18 06:00 Total Bilirubin 0.5 mg/dL (0.2-1) 09/16/18 06:00 AST 16 U/L (15-37) 09/16/18 06:00 ALT 27 U/L (13-61) 09/16/18 06:00 Alkaline Phosphatase 80 U/L (45-117) 09/16/18 06:00 Total Protein 7.7 g/dl (6.4-8.2) 09/16/18 06:00 Albumin 4.3 g/dl (3.4-5.0) 09/16/18 06:00 Urine Color Yellow 09/15/18 17:00 Urine Appearance Clear 09/15/18 17:00 Urine pH 5.0 (5.0-8.0) 09/15/18 17:00 Ur Specific [place] 1.026 (1.010-1.035) 09/15/18 17:00 Urine Protein Negative (NEGATIVE) 09/15/18 17:00 Urine Glucose (UA) Negative (NEGATIVE) 09/15/18 17:00 Urine Ketones Negative (NEGATIVE) 09/15/18 17:00 Urine Blood Negative (NEGATIVE) 09/15/18 17:00 Urine Nitrite Negative (NEGATIVE) 09/15/18 17:00 Urine Bilirubin Negative (<2.0 mg/dL) 09/15/18 17:00 Urine Urobilinogen Negative mg/dL (0.2-1.0) 09/15/18 17:00 Ur Leukocyte Esterase Trace (NEGATIVE) 09/15/18 17:00 Urine WBC (Auto) <1 /hpf (3-5) 09/15/18 17:00 Urine RBC (Auto) None /hpf (0-3) 09/15/18 17:00 Urine Bacteria Rare /hpf (NONE SEEN) 09/15/18 17:00 Urine Mucus Few 09/15/18 17:00 RPR Titer Nonreactive (NONREACTIVE) 09/16/18 06:00 HIV 1&2 Antibody Screen Negative 09/15/18 10:30 HIV P24 Antigen Negative 09/15/18 10:30 Labs noted - Medication Discharge Medications: Ambulatory Orders NK [No Known Home Medication] 07/28/17 - Diagnosis (1) Alcohol dependence with uncomplicated withdrawal Current Visit: Yes Status: Acute (2) Cannabis dependence Current Visit: Yes Status: Acute (3) Opioid dependence with withdrawal Current Visit: Yes Status: Acute (4) Cocaine dependence Current Visit: Yes Status: Chronic (5) Insomnia Current Visit: Yes Status: Chronic - AMA Did Patient Leave Against Medical Advice: No (Pt requested d/c this pm instead of tomorrow)
[2018-09-20] MEDS ORDERED: METHADONE HCL 5 MG TABLET (FOR DETOX USE ONLY) PO SCH (06:00)
== END 2018-09-19 15:48 | disposition home or self-care (01) | DRG 773 ==
LOC: YASAS 09:10 → Y3N 10:24
PROC: HZ2ZZZZ Detoxification Services for Substance Abuse Treatment (ICD-10-PCS; principal; 2018-09-15)
DX: F11.23 Opioid dependence with withdrawal (principal); F10.230 Alcohol dependence with withdrawal, uncomplicated; F14.20 Cocaine dependence, uncomplicated; F12.20 Cannabis dependence, uncomplicated; F17.210 Nicotine dependence, cigarettes, uncomplicated; F19.24 Other psychoactive substance dependence with psychoactive substance-induced mood disorder; F31.9 Bipolar disorder, unspecified; G47.00 Insomnia, unspecified
CPT/HCPCS: 36415; 80053; 81003; 81015; 85027; 86593; 87389; 90688; G0008

== ENCOUNTER 2019-05-10 15:59 | Inpatient (IN) | payer OTHER ==
[2019-05-10] MEDS ORDERED: MELATONIN 5 MG TABLETS PO PRN (22:00)
[2019-05-10 22:37] VITALS: BMI 27.9
--- NOTE | 2019-05-10 23:41 | HP ---
CIWA Score - Admission Criteria [facility]AS Guidelines: Admission for Medically Managed Detox: Requires at least one of the followin. CIWA greater than 12 2. Seizures within the past 24 hours 3. Delirium tremens within the past 24 hours 4. Hallucinations within the past 24 hours 5. Acute intervention needed for co occurring medical disorder 6. Acute intervention needed for co occurring psychiatric disorder 7. Severe withdrawal that cannot be handled at a lower level of care (continued vomiting, continued diarrhea, abnormal vital signs) requiring intravenous medication and/or fluids 8. Admission ROS S - [facility] Chief Complaint: seeking rehab for ongoing leonidas and cannabis dependence Allergies/Adverse Reactions: Allergies Allergy/AdvReac Type Severity Reaction Status Date / Time No Known Allergies Allergy Verified 05/10/19 22:29 History of Present Illness: 38 y.o. male with cannabis and crack/cocaine dependence here for rehab. client is referred by his out patient program at [facility]. he reports daily daily use of the crack and thc. last use today. most recent clean time 3 months relapsing 12/2018. denies hx/o sz, black outs, si/hi/avh. domiciled, unemployed, denies legals pmhx- denies psych- denies Exam Limitations: No Limitations - Ebola screening Have you traveled outside of the country in the last 21 days: No Have you had contact with anyone from an Ebola affected area: No Do you have a fever: No - Review of Systems Constitutional: Chills, Loss of Appetite, Malaise, Night Sweats, Changes in sleep EENT: reports: Dental Problems (dental pain) Respiratory: reports: No Symptoms reported Cardiac: reports: No Symptoms Reported GI: reports: No Symptoms Reported : reports: No Symptoms Reported Musculoskeletal: reports: No Symptoms Reported Integumentary: reports: No Symptoms Reported Neuro: reports: No Symptoms reported Endocrine: reports: No Symptoms Reported Hematology: reports: No Symptoms Reported Psychiatric: reports: Orientated x3, Anxious Other Systems: Reviewed and Negative Patient History - Patient Medical History Hx Anemia: No Hx Asthma: No Hx Chronic Obstructive Pulmonary Disease (COPD): No Hx Cancer: No Hx Cardiac Disorders: No Hx Congestive Heart Failure: No Hx Hypertension: No Hx Hypercholesterolemia: No Hx Pacemaker: No HX Cerebrovascular Accident: No Hx Seizures: No Hx Dementia: No Hx Diabetes: No Hx Gastrointestinal Disorders: No Hx Liver Disease: No Hx Genitourinary Disorders: No Hx Sexually Transmitted Disorders: No Hx Renal Disease (ESRD): No Hx Thyroid Disease: No Hx Human Immunodeficiency Virus (HIV): No Hx Hepatitis C: No Hx Depression: No Hx Suicide Attempt: No Hx Bipolar Disorder: No Hx Schizophrenia: No Other Medical History: denies - Patient Surgical History Past Surgical History: No Hx Neurologic Surgery: No Hx Cataract Extraction: No Hx Cardiac Surgery: No Hx Lung Surgery: No Hx Breast Surgery: No Hx Breast Biopsy: No Hx Abdominal Surgery: No Hx Appendectomy: No Hx Cholecystectomy: No Hx Genitourinary Surgery: No Hx Section: No Hx Orthopedic Surgery: No Anesthesia Reaction: No - PPD History Previous Implant?: Yes Documented Results: Negative w/proof Implanted On Prior [facility] Admission?: Yes Date: 09/17/18 Results: 0 mm PPD to be Administered?: No - Smoking Cessation Smoking history: Current every day smoker Have you smoked in the past 12 months: Yes Aproximately how many cigarettes per day: 10 Cigars Per Day: 0 Hx Chewing Tobacco Use: No Initiated information on smoking cessation: Yes 'Breaking Loose' booklet given: 05/10/19 - Substance & Tx. History Hx Alcohol Use: Yes Hx Substance Use: Yes Substance Use Type: Cocaine, Marijuana Hx Substance Use Treatment: Yes ([facility]) - Substances abused Crack Substance route: Smoking Frequency: Daily Amount used: 5 bags per day Age of first use: 28 Date of last use: 05/10/19 Marijuana/Hashish Substance route: Smoking Frequency: Daily Amount used: 2 bags per day Age of first use: 13 Date of last use: 05/10/19 Alcohol Substance route: Oral Frequency: Daily Amount used: 6pk mckeon & 1 pint [place] Age of first use: 13 Date of last use: 05/07/19 Family Disease History - Family Disease History Family Disease History: [place]: Grandparent, Other: Father (,), Mother ( depression,dsa) Admission Physical Exam [facility] - Vital Signs Vital Signs: Vital Signs - 24 hr 05/10/19 22:25 Temperature 98.4 F Pulse Rate 80 Respiratory 18 Rate Blood Pressure 126/85 - Physical General Appearance: Yes: Anxious HEENTM: Yes: EOMI, Normocephalic, Normal Voice, ELYSE, Pharynx Normal Respiratory: Yes: Chest Non-Tender, Lungs Clear, Normal Breath Sounds, No Respiratory Distress, No Accessory Muscle Use Neck: Yes: No masses,lesions,Nodules, Supple, Trachea in good position Breast: Yes: Breast Exam Deferred Cardiology: Yes: Regular Rhythm, Regular Rate, S1, S2 Abdominal: Yes: Non Tender, Soft, Increased Bowel Sounds Genitourinary: Yes: Within Normal Limits Back: Yes: Normal Inspection Musculoskeletal: Yes: full range of Motion, Gait Steady Extremities: Yes: Normal Capillary Refill, Normal Range of Motion, Non-Tender Neurological: Yes: Fully Oriented, Alert, Motor Strength 5/5, Depressed Affect Integumentary: Yes: Warm, Clammy Lymphatic: Yes: Within Normal Limits - Diagnostic (1) Cannabis abuse, uncomplicated Current Visit: Yes Status: Acute (2) Cocaine abuse, uncomplicated Current Visit: Yes Status: Acute (3) Drug-induced mood disorder Current Visit: No Status: Chronic (4) Nicotine dependence Current Visit: No Status: Chronic Cleared for Admission [facility] - Detox or Rehab Detox Regimen/Protocol: Not Applicable Claeared for Rehab Admission: Yes Breathalyzer - Breathalyzer Breathalyzer: 0 Urine Drug Screen - Test Device Lot number: [id number] Expiration date: 02/02/21 - Control Is test valid?: Yes - Results Drug screen NEGATIVE: No Urine drug screen results: THC-Marijuana, LEONIDAS-Cocaine Inpatient Rehab Admission - Rehab Decision to Admit Inpatient rehab admission?: Yes - Initial Determination Are CD services needed?: Yes Free of communicable disease: Yes Not in need of hospitalization: Yes - Rehab Admission Criteria Previous failed treatment: Yes Poor recovery environment: Yes Comorbidities: Yes Lacks judgement: No Patient is meeting Inpatient Rehab admission criteria:: Yes
[2019-05-10] MEDS ORDERED: MAGNESIUM HYDROX 2400MG/30ML ORAL SUSPENSION 30 ML CUP PO PRN (23:43)
[2019-05-10] MEDS ORDERED: hydrOXYzine HCL 25 MG TABLET (FP) PO PRN (23:43)
[2019-05-10] MEDS ORDERED: guaiFENesin 200 MG/10 ML 10 ML UNIT-DOSE CUPS PO PRN (23:43)
[2019-05-10] MEDS ORDERED: IBUPROFEN 400 MG TABLET (FP) PO PRN (23:43)
[2019-05-10] MEDS ORDERED: NICOTINE POLACRILEX 2 MG GUM BUC PRN (23:43)
[2019-05-10] MEDS ORDERED: MAGNESIUM CITRATE 300 ML BOTTLE PO PRN (23:43)
[2019-05-10] MEDS ORDERED: MENTHOL/PHENOL 1 EACH UD MM PRN (23:43)
[2019-05-10] MEDS ORDERED: P-EPHED 60MG/TRIPROLIDI 2.5MG TABLET PO PRN (23:43)
[2019-05-10] MEDS ORDERED: LOPERAMIDE HCL 2 MG CAPSULE PO PRN (23:43)
[2019-05-10] MEDS ORDERED: ACETAMINOPHEN 325 MG TABLET (FP) PO PRN (23:43)
--- NOTE | 2019-05-11 10:16 | CONSULT ---
[facility] Psychiatric Consult - Data Date of interview: 05/11/19 Admission source: [facility] Identifying data: Patient is a 38 year old single male, father of five, unemployed, domiciled, and is not supported with financial assistance. This is patient's first admission to rehab at [facility]. Patient admitted to for marijuana and cocaine dependence. Substance Abuse History: Smoking Cessation. Smoking history: Current every day smoker. Have you smoked in the past 12 months: Yes. Aproximately how many cigarettes per day: 10. Cigars Per Day: 0. Hx Chewing Tobacco Use: No. Initiated information on smoking cessation: Yes. 'Breaking Loose' booklet given : 05/10/19. - Substance & Tx. History. Hx Alcohol Use: Yes. Hx Substance Use : Yes. Substance Use Type: Cocaine, Marijuana. Hx Substance Use Treatment: Yes (promaashish). - Substances abused. Crack. Substance route: Smoking. Frequency: Daily. Amount used: 5 bags per day. Age of first use: 28. Date of last use: 05/10/19. Marijuana/Hashish. Substance route: Smoking. Frequency : Daily. Amount used: 2 bags per day. Age of first use: 13. Date of last use : 05/10/19 Medical History: denies. Psychiatric History: Patient's first psychiatric contact was six years ago after he was admitted to [facility] for depression. States he was prescribed psychotropic medications but is unable to recall the names of the medications. Mr. Greene had a second psychiatric hospitalization at [facility] three years ago for depression. He reports being prescribed seroquel + Trazodone. Patient denies h/o suicide attempt and is not followed by a psychiatric provider. He denies taking psychotropic medications and states he does not need psychotropic medications while in rehab. At present he reports stable mood. Physical/Sexual Abuse/Trauma History: denies. Mental Status Exam - Mental Status Exam Alert and Oriented to: Time, Place, Person Cognitive Function: Good Patient Appearance: Well Groomed Mood: Euthymic Affect: Mood Congruent Patient Behavior: Cooperative Speech Pattern: Appropriate Voice Loudness: Normal Thought Process: Goal Oriented Thought Disorder: Not Present Hallucinations: Denies Suicidal Ideation: Denies Homicidal Ideation: Denies Insight/Judgement: Poor Sleep: Fair Appetite: Fair Muscle strength/Tone: Normal Gait/Station: Normal Psychiatric Findings - Problem List ([place] 1, 2,3) (1) Cannabis abuse, uncomplicated Current Visit: Yes Status: Acute (2) Cocaine abuse, uncomplicated Current Visit: Yes Status: Acute (3) Nicotine dependence Current Visit: No Status: Chronic - Initial Treatment Plan Initial Treatment Plan: Psychoeducation provided. Detoxification in progress. Observation.
[2019-05-11] MEDS: NICOTINE 14 MG/24 HOURS TOPICAL PATCH TD SCH (10:25)
[2019-05-11] MEDS: PRENATAL VITAMINS W/ FOLIC ACID TABLET (FP) PO SCH (10:25)
[2019-05-11] MEDS: MAG HYDROX/AL HYDROX/SIMETH 30 ML UNIT-DOSE CUP PO PRN (10:26)
[2019-05-11 12:24] LABS: URINE APPEARANCE CLEAR; URINE BILIRUBIN NEGATIVE (NEGATIVE); URINE COLOR YELLOW; URINE GLUCOSE (UA) NEGATIVE (NEGATIVE); URINE KETONE TRACE (NEGATIVE); URINE LEUK ESTERASE NEGATIVE (NEGATIVE); URINE NITRITE NEGATIVE (NEGATIVE); URINE PROTEIN NEGATIVE (NEGATIVE)
[2019-05-11 13:07] LABS: ALBUMIN 3.5 g/dl (3.4-5.0); BILIRUBIN,TOTAL 1.3 mg/dL (0.2-1); BLOOD UREA NITROGEN 20.8 mg/dL (7-18); CALCIUM 8.7 mg/dL (8.5-10.1); CREATININE 1.2 mg/dL (0.55-1.3); POTASSIUM 4.3 mmol/L (3.5-5.1); TOT PROT 6.4 g/dl (6.4-8.2)
[2019-05-11 13:09] LABS: HEMOGLOBIN 14.5 GM/dL (11.7-16.9); MCH 29.8 pg (25.7-33.7); MCHC 33.8 g/dl (32.0-35.9); MEAN CELL VOLUME 88.2 fl (80-96); MEAN PLT VOLUME 9.1 fl (7.5-11.1); PLATELET COUNT 173 K/MM3 (134-434); RBC 4.87 M/mm3 (4.00-5.60); RDW 13.4 % (11.9-15.9); WHITE BLOOD COUNT 6.6 K/mm3 (4.0-10.0)
[2019-05-11] MEDS ORDERED: THIAMINE HCL 100 MG TABLET (FP) PO SCH (22:00)
[2019-05-12 06:59] VITALS: BP 127/75; PULSE 65; TEMP 97.7
[2019-05-12] MEDS: MAG HYDROX/AL HYDROX/SIMETH 30 ML UNIT-DOSE CUP PO PRN (10:01)
[2019-05-12] MEDS: PRENATAL VITAMINS W/ FOLIC ACID TABLET (FP) PO SCH (10:02)
[2019-05-12] MEDS: NICOTINE 14 MG/24 HOURS TOPICAL PATCH TD SCH (10:03)
--- NOTE | 2019-05-12 17:47 | PN ---
S Progress Note Note: Pt was admitted two days for rehab for ongoing layne and cannabis dependence. Left AMA. No reason given. Pt did not need home meds.f/u PCP
== END 2019-05-12 16:48 | disposition left against medical advice (07) | DRG 770 ==
LOC: YASAS 15:59 → Y3W 23:45
PROVIDERS: ADMIT Neuromusculoskeletal Medicine & OMM; ATTEND Neuromusculoskeletal Medicine & OMM
PROC: HZ42ZZZ Group Counseling for Substance Abuse Treatment, Cognitive-Behavioral (ICD-10-PCS; principal; 2019-05-10)
DX: F10.20 Alcohol dependence, uncomplicated (principal); F14.20 Cocaine dependence, uncomplicated; F12.20 Cannabis dependence, uncomplicated; F17.210 Nicotine dependence, cigarettes, uncomplicated; F19.24 Other psychoactive substance dependence with psychoactive substance-induced mood disorder
CPT/HCPCS: 36415; 80053; 81003; 85027; 86593

== ENCOUNTER 2022-08-01 09:11 | Inpatient (IN) | payer OTHER ==
[2022-08-01 11:11] VITALS: BMI 30.8
[2022-08-01] MEDS ORDERED: MAGNESIUM CITRATE 300 ML BOTTLE PO PRN (13:40)
[2022-08-01] MEDS ORDERED: hydrOXYzine PAMOATE 25 MG CAPSULE (FP) PO PRN (13:40)
[2022-08-01] MEDS ORDERED: IBUPROFEN 400 MG TABLET (FP) PO PRN (13:40)
[2022-08-01] MEDS ORDERED: cloNIDine HCL 0.1 MG TABLET PO PRN (13:40)
[2022-08-01] MEDS ORDERED: ACETAMINOPHEN 325 MG TABLET (FP) PO PRN ×2 (13:40)
[2022-08-01] MEDS ORDERED: chlordiazePOXIDE HCL 25 MG CAPSULE PO PRN (13:40)
[2022-08-01] MEDS ORDERED: NALOXONE HCL (KLOXXADO) 8 MG SPRAY NS PRN (13:40)
[2022-08-01] MEDS ORDERED: BISMUTH SUBSALICYLATE 524 MG/30 ML PO PRN (13:40)
[2022-08-01] MEDS ORDERED: MAGNESIUM HYDROX 2400MG/30ML ORAL SUSPENSION 30 ML CUP PO PRN (13:40)
[2022-08-01] MEDS ORDERED: LOPERAMIDE HCL 2 MG CAPSULE PO PRN (13:40)
[2022-08-01] MEDS ORDERED: MAG HYDROX/AL HYDROX/SIMETH 30 ML UNIT-DOSE CUP PO PRN (13:40)
[2022-08-01] MEDS ORDERED: DICYCLOMINE HCL 10 MG CAPSULE PO PRN (13:40)
[2022-08-01] MEDS ORDERED: ONDANSETRON *ODT* 4 MG TABLET SL PRN (13:40)
[2022-08-01] MEDS ORDERED: COD LIVER OIL/ZINC OXIDE PASTE 56 GM TUBE TP PRN (14:35)
[2022-08-01] MEDS ORDERED: methaDONE HCL 10 MG TABLET (FOR DETOX USE ONLY) PO ONE (15:00)
[2022-08-01] MEDS: PRENATAL VITAMINS W/ FOLIC ACID TABLET (FP) PO SCH (15:20)
[2022-08-01] MEDS: NICOTINE 21 MG/24 HOURS TOPICAL PATCH TD SCH (15:23)
[2022-08-01 16:49] LABS: ALBUMIN 3.9 g/dl (3.4-5.0); BLOOD UREA NITROGEN 23.7 mg/dL (7-18); CALCIUM 9.4 mg/dL (8.5-10.1)
[2022-08-01 16:53] LABS: CREATININE 1.2 mg/dL (0.55-1.3); HEMATOCRIT 45.6 % (35.4-49); HEMOGLOBIN 14.9 GM/dL (11.7-16.9); MCH 28.8 pg (25.7-33.7); MCHC 32.7 g/dl (32.0-35.9); MEAN CELL VOLUME 87.9 fl (80-96); MEAN PLT VOLUME 8.8 fl (7.5-11.1); PLATELET COUNT 252 10^3/uL (134-434); RBC 5.19 M/mm3 (4.00-5.60); RDW 14.1 % (11.9-15.9); WHITE BLOOD COUNT 9.7 K/mm3 (4.0-10.0)
[2022-08-01 16:54] LABS: BILIRUBIN,TOTAL 0.6 mg/dL (0.2-1); TOT PROT 7.2 g/dl (6.4-8.2)
[2022-08-01] MEDS: chlordiazePOXIDE HCL 25 MG CAPSULE PO SCH ×2 (17:36→22:07)
[2022-08-01] MEDS: CALAMINE 8% TOPICAL LOTION 177 ML BOTTLE TP PRN (21:28)
[2022-08-01] MEDS: IBUPROFEN 600 MG TABLET (FP) PO PRN (21:30)
[2022-08-01] MEDS: THIAMINE HCL 100 MG TABLET (FP) PO SCH (21:30)
[2022-08-01] MEDS: MELATONIN 5 MG TABLETS PO SCH (21:30)
[2022-08-01] MEDS: METHOCARBAMOL 500 MG TABLET PO PRN (21:31)
[2022-08-02] MEDS: chlordiazePOXIDE HCL 25 MG CAPSULE PO SCH ×4 (05:51→22:04)
[2022-08-02] MEDS: NICOTINE 21 MG/24 HOURS TOPICAL PATCH TD SCH (10:05)
[2022-08-02] MEDS: PRENATAL VITAMINS W/ FOLIC ACID TABLET (FP) PO SCH (10:06)
[2022-08-02] MEDS: CALAMINE 8% TOPICAL LOTION 177 ML BOTTLE TP PRN ×2 (10:29→20:00)
[2022-08-02] MEDS: NICOTINE 10 MG CARTRIDGE (INHALER) IH PRN ×2 (15:18→17:08)
[2022-08-02] MEDS: IBUPROFEN 600 MG TABLET (FP) PO PRN (19:58)
[2022-08-02] MEDS: MELATONIN 5 MG TABLETS PO SCH (22:04)
[2022-08-02] MEDS: THIAMINE HCL 100 MG TABLET (FP) PO SCH (22:04)
[2022-08-02] MEDS: METHOCARBAMOL 500 MG TABLET PO PRN (22:04)
[2022-08-03] MEDS: chlordiazePOXIDE HCL 25 MG CAPSULE PO SCH ×4 (05:39→22:03)
[2022-08-03] MEDS ORDERED: methaDONE HCL 10 MG TABLET (FOR DETOX USE ONLY) PO ONE (10:00)
[2022-08-03] MEDS: PRENATAL VITAMINS W/ FOLIC ACID TABLET (FP) PO SCH (10:04)
[2022-08-03] MEDS: NICOTINE 10 MG CARTRIDGE (INHALER) IH PRN (10:05)
[2022-08-03] MEDS: NICOTINE 21 MG/24 HOURS TOPICAL PATCH TD SCH (10:07)
[2022-08-03] MEDS: THIAMINE HCL 100 MG TABLET (FP) PO SCH (22:03)
[2022-08-03] MEDS: MELATONIN 5 MG TABLETS PO SCH (22:03)
[2022-08-04] MEDS ORDERED: chlordiazePOXIDE HCL 10 MG CAPSULE PO PRN
[2022-08-04] MEDS: BENZOCAINE/MENTHOL (CHLORASEPTIC ) LOZENGE MM PRN (05:45)
[2022-08-04] MEDS: chlordiazePOXIDE HCL 10 MG CAPSULE PO SCH ×4 (05:45→22:12)
[2022-08-04] MEDS: NICOTINE 10 MG CARTRIDGE (INHALER) IH PRN ×2 (06:43→10:08)
[2022-08-04] MEDS: PRENATAL VITAMINS W/ FOLIC ACID TABLET (FP) PO SCH (10:07)
[2022-08-04] MEDS: NICOTINE 21 MG/24 HOURS TOPICAL PATCH TD SCH (10:08)
[2022-08-04] MEDS: THIAMINE HCL 100 MG TABLET (FP) PO SCH (22:12)
[2022-08-04] MEDS: MELATONIN 5 MG TABLETS PO SCH (22:12)
[2022-08-05] MEDS: BENZOCAINE/MENTHOL (CHLORASEPTIC ) LOZENGE MM PRN ×2 (04:06→20:57)
[2022-08-05] MEDS: chlordiazePOXIDE HCL 10 MG CAPSULE PO SCH ×2 (05:23→17:39)
[2022-08-05] MEDS ORDERED: methaDONE HCL 10 MG TABLET (FOR DETOX USE ONLY) PO ONE (10:00)
[2022-08-05] MEDS: PRENATAL VITAMINS W/ FOLIC ACID TABLET (FP) PO SCH (10:19)
[2022-08-05] MEDS: NICOTINE 21 MG/24 HOURS TOPICAL PATCH TD SCH (10:19)
[2022-08-05] MEDS: CALAMINE 8% TOPICAL LOTION 177 ML BOTTLE TP PRN (10:19)
[2022-08-05] MEDS: NICOTINE 10 MG CARTRIDGE (INHALER) IH PRN ×2 (14:21→17:54)
[2022-08-05] MEDS: THIAMINE HCL 100 MG TABLET (FP) PO SCH (22:01)
[2022-08-05] MEDS: MELATONIN 5 MG TABLETS PO SCH (22:01)
[2022-08-06] MEDS ORDERED: chlordiazePOXIDE HCL 10 MG CAPSULE PO ONE (05:00)
[2022-08-06 09:18] VITALS: BP 117/71; PULSE 97; RESP 19; TEMP 97.5
[2022-08-06] MEDS: NICOTINE 10 MG CARTRIDGE (INHALER) IH PRN (09:52)
[2022-08-06] MEDS: PRENATAL VITAMINS W/ FOLIC ACID TABLET (FP) PO SCH (10:05)
[2022-08-06] MEDS: NICOTINE 21 MG/24 HOURS TOPICAL PATCH TD SCH (10:06)
== END 2022-08-06 11:06 | disposition other institution (70) | DRG 773 ==
LOC: YASAS 09:11 → Y3N 14:27
PROVIDERS: ADMIT Allergy & Immunology; ATTEND Surgery
PROC: HZ2ZZZZ Detoxification Services for Substance Abuse Treatment (ICD-10-PCS; principal; 2022-08-01)
DX: F11.23 Opioid dependence with withdrawal (principal); F10.230 Alcohol dependence with withdrawal, uncomplicated; F14.20 Cocaine dependence, uncomplicated; F12.20 Cannabis dependence, uncomplicated; F17.210 Nicotine dependence, cigarettes, uncomplicated; E86.0 Dehydration; Z59.00 Homelessness unspecified
CPT/HCPCS: 36415; 80053; 85027; 86780; C9803-CS; Q0162; U0003; U0005

== ENCOUNTER 2022-08-06 11:08 | Inpatient (IN) | payer OTHER ==
[2022-08-06 11:21] VITALS: BP 129/86; PULSE 91; RESP 18; TEMP 97.5
[2022-08-06] MEDS ORDERED: IBUPROFEN 400 MG TABLET (FP) PO PRN (13:10)
[2022-08-06] MEDS ORDERED: MAGNESIUM HYDROX 2400MG/30ML ORAL SUSPENSION 30 ML CUP PO PRN (13:10)
[2022-08-06] MEDS ORDERED: BENZOCAINE/MENTHOL (CHLORASEPTIC ) LOZENGE MM PRN (13:10)
[2022-08-06] MEDS ORDERED: hydrOXYzine PAMOATE 25 MG CAPSULE (FP) PO PRN (13:10)
[2022-08-06] MEDS ORDERED: guaiFENesin 200 MG/10 ML 10 ML UNIT-DOSE CUPS PO PRN (13:10)
[2022-08-06] MEDS ORDERED: NICOTINE 10 MG CARTRIDGE (INHALER) IH PRN (13:10)
[2022-08-06] MEDS ORDERED: NICOTINE POLACRILEX 2 MG GUM BUC PRN (13:10)
[2022-08-06] MEDS ORDERED: ACETAMINOPHEN 325 MG TABLET (FP) PO PRN (13:10)
[2022-08-06] MEDS ORDERED: MAG HYDROX/AL HYDROX/SIMETH 30 ML UNIT-DOSE CUP PO PRN (13:10)
[2022-08-06] MEDS ORDERED: MAGNESIUM CITRATE 300 ML BOTTLE PO PRN (13:10)
[2022-08-06] MEDS ORDERED: P-EPHED 60MG/TRIPROLIDI 2.5MG TABLET PO PRN (13:10)
[2022-08-06] MEDS ORDERED: LOPERAMIDE HCL 2 MG CAPSULE PO PRN (13:10)
[2022-08-06] MEDS ORDERED: ZINC OXIDE 20% TOPICAL OINTMENT 30 GM TUBE TP ONE (13:11)
[2022-08-06] MEDS ORDERED: ZINC OXIDE 20% TOPICAL OINTMENT 30 GM TUBE TP PRN (15:47)
[2022-08-06] MEDS ORDERED: THIAMINE HCL 100 MG TABLET (FP) PO SCH (22:00)
[2022-08-06] MEDS ORDERED: MELATONIN 5 MG TABLETS PO SCH (22:00)
[2022-08-07] MEDS ORDERED: PRENATAL VITAMINS W/ FOLIC ACID TABLET (FP) PO SCH (10:00)
[2022-08-07] MEDS ORDERED: NICOTINE 7 MG/24 HOURS TOPICAL PATCH TD SCH (10:00)
== END 2022-08-06 21:30 | disposition home or self-care (01) | DRG 772 ==
LOC: YASAS 11:08 → Y3E 11:10
PROVIDERS: ADMIT Allergy & Immunology; ATTEND Surgery
PROC: HZ42ZZZ Group Counseling for Substance Abuse Treatment, Cognitive-Behavioral (ICD-10-PCS; principal; 2022-08-06)
DX: F11.20 Opioid dependence, uncomplicated (principal); F10.20 Alcohol dependence, uncomplicated; F14.20 Cocaine dependence, uncomplicated; F12.20 Cannabis dependence, uncomplicated; F17.210 Nicotine dependence, cigarettes, uncomplicated; Z59.00 Homelessness unspecified

== ENCOUNTER 2022-10-05 09:23 | Inpatient (IN) | payer OTHER ==
[2022-10-05 10:28] VITALS: BMI 30.9
[2022-10-05] MEDS ORDERED: LOPERAMIDE HCL 2 MG CAPSULE PO PRN (12:35)
[2022-10-05] MEDS ORDERED: hydrOXYzine PAMOATE 25 MG CAPSULE (FP) PO PRN (12:35)
[2022-10-05] MEDS ORDERED: ACETAMINOPHEN 325 MG TABLET (FP) PO PRN (12:35)
[2022-10-05] MEDS ORDERED: guaiFENesin 200 MG/10 ML 10 ML UNIT-DOSE CUPS PO PRN (12:35)
[2022-10-05] MEDS ORDERED: IBUPROFEN 400 MG TABLET (FP) PO PRN (12:35)
[2022-10-05] MEDS ORDERED: BENZOCAINE/MENTHOL (CHLORASEPTIC ) LOZENGE MM PRN (12:35)
[2022-10-05] MEDS ORDERED: POLYETHYLENE GLYCOL (HEALTHYLAX) 3350 17 GM PACKET PO PRN (12:35)
[2022-10-05] MEDS ORDERED: P-EPHED 60MG/TRIPROLIDI 2.5MG TABLET PO PRN (12:35)
[2022-10-05] MEDS ORDERED: MAG HYDROX/AL HYDROX/SIMETH 30 ML UNIT-DOSE CUP PO PRN (12:35)
[2022-10-05] MEDS ORDERED: MAGNESIUM HYDROX 2400MG/30ML ORAL SUSPENSION 30 ML CUP PO PRN (12:35)
[2022-10-05] MEDS: THIAMINE HCL 100 MG TABLET (FP) PO SCH (21:32)
[2022-10-05] MEDS: MELATONIN 5 MG TABLETS PO SCH (21:32)
[2022-10-06 01:59] LABS: EPI CELLS 10 /uL (0-25.1); HYALINE CASTS 2 /uL (0-3.1); PH,URINE 5.5 (5.0-8.0); URINE APPEARANCE TURBID; URINE BACTERIA 2 /uL (0-1359); URINE BILIRUBIN NEGATIVE (NEGATIVE); URINE COLOR YELLOW; URINE GLUCOSE (UA) NEGATIVE (NEGATIVE); URINE KETONE TRACE (NEGATIVE); URINE LEUK ESTERASE NEGATIVE (NEGATIVE); URINE NITRITE NEGATIVE (NEGATIVE); URINE PROTEIN TRACE (NEGATIVE); URINE RBC 12 /uL (0-23.9); URINE WBC 5 /uL (0-25.8)
[2022-10-06 08:47] LABS: HEMATOCRIT 45.2 % (35.4-49); HEMOGLOBIN 14.4 GM/dL (11.7-16.9); MCH 28.1 pg (25.7-33.7); MCHC 31.8 g/dl (32.0-35.9); MEAN CELL VOLUME 88.3 fl (80-96); MEAN PLT VOLUME 8.5 fl (7.5-11.1); PLATELET COUNT 185 10^3/uL (134-434); RBC 5.11 M/mm3 (4.00-5.60); RDW 14.5 % (11.9-15.9); WHITE BLOOD COUNT 5.3 K/mm3 (4.0-10.0)
[2022-10-06] MEDS: PRENATAL VITAMINS W/ FOLIC ACID TABLET (FP) PO SCH (09:31)
[2022-10-06] MEDS: NICOTINE 7 MG/24 HOURS TOPICAL PATCH TD SCH (09:32)
[2022-10-06 09:53] LABS: CALCIUM 8.6 mg/dL (8.5-10.1)
[2022-10-06 09:54] LABS: ALBUMIN 3.4 g/dl (3.4-5.0); BLOOD UREA NITROGEN 15.3 mg/dL (7-18)
[2022-10-06 09:58] LABS: TOT PROT 6.5 g/dl (6.4-8.2)
[2022-10-06 09:59] LABS: BILIRUBIN,TOTAL 0.4 mg/dL (0.2-1)
[2022-10-06] MEDS: THIAMINE HCL 100 MG TABLET (FP) PO SCH (22:03)
[2022-10-06] MEDS: MELATONIN 5 MG TABLETS PO SCH (22:03)
[2022-10-07] MEDS: PRENATAL VITAMINS W/ FOLIC ACID TABLET (FP) PO SCH (10:24)
[2022-10-07] MEDS: NICOTINE 7 MG/24 HOURS TOPICAL PATCH TD SCH (10:24)
[2022-10-07] MEDS: MELATONIN 5 MG TABLETS PO SCH (21:39)
[2022-10-07] MEDS: THIAMINE HCL 100 MG TABLET (FP) PO SCH (21:39)
[2022-10-08] MEDS: PRENATAL VITAMINS W/ FOLIC ACID TABLET (FP) PO SCH (09:56)
[2022-10-08] MEDS: NICOTINE 7 MG/24 HOURS TOPICAL PATCH TD SCH (09:56)
[2022-10-08] MEDS: NICOTINE 10 MG CARTRIDGE (INHALER) IH PRN (09:57)
[2022-10-08] MEDS ORDERED: NICOTINE 7 MG/24 HOURS TOPICAL PATCH TD PRN (12:08)
[2022-10-08] MEDS: THIAMINE HCL 100 MG TABLET (FP) PO SCH (21:35)
[2022-10-08] MEDS: MELATONIN 5 MG TABLETS PO SCH (21:35)
[2022-10-09] MEDS: NICOTINE 10 MG CARTRIDGE (INHALER) IH PRN (09:44)
[2022-10-09] MEDS: PRENATAL VITAMINS W/ FOLIC ACID TABLET (FP) PO SCH (09:44)
[2022-10-09] MEDS: THIAMINE HCL 100 MG TABLET (FP) PO SCH (21:19)
[2022-10-09] MEDS: MELATONIN 5 MG TABLETS PO SCH (21:19)
[2022-10-10] MEDS: PRENATAL VITAMINS W/ FOLIC ACID TABLET (FP) PO SCH (10:08)
[2022-10-10] MEDS: NICOTINE 10 MG CARTRIDGE (INHALER) IH PRN (10:08)
[2022-10-10] MEDS: MELATONIN 5 MG TABLETS PO SCH (21:20)
[2022-10-10] MEDS: THIAMINE HCL 100 MG TABLET (FP) PO SCH (21:20)
[2022-10-11] MEDS: PRENATAL VITAMINS W/ FOLIC ACID TABLET (FP) PO SCH (10:28)
[2022-10-11] MEDS: NICOTINE 10 MG CARTRIDGE (INHALER) IH PRN (10:28)
[2022-10-11] MEDS: MELATONIN 5 MG TABLETS PO SCH (21:42)
[2022-10-11] MEDS: THIAMINE HCL 100 MG TABLET (FP) PO SCH (21:42)
[2022-10-12] MEDS: PRENATAL VITAMINS W/ FOLIC ACID TABLET (FP) PO SCH (09:40)
[2022-10-12] MEDS: NICOTINE 10 MG CARTRIDGE (INHALER) IH PRN (09:41)
[2022-10-12] MEDS: THIAMINE HCL 100 MG TABLET (FP) PO SCH (21:35)
[2022-10-12] MEDS: MELATONIN 5 MG TABLETS PO SCH (21:35)
[2022-10-13] MEDS: PRENATAL VITAMINS W/ FOLIC ACID TABLET (FP) PO SCH (10:35)
[2022-10-13] MEDS: NICOTINE 10 MG CARTRIDGE (INHALER) IH PRN (10:36)
[2022-10-13] MEDS: THIAMINE HCL 100 MG TABLET (FP) PO SCH (21:26)
[2022-10-13] MEDS: MELATONIN 5 MG TABLETS PO SCH (21:26)
[2022-10-14] MEDS: PRENATAL VITAMINS W/ FOLIC ACID TABLET (FP) PO SCH (10:08)
[2022-10-14] MEDS: NICOTINE 10 MG CARTRIDGE (INHALER) IH PRN (13:17)
[2022-10-14] MEDS: THIAMINE HCL 100 MG TABLET (FP) PO SCH (21:36)
[2022-10-14] MEDS: MELATONIN 5 MG TABLETS PO SCH (21:36)
[2022-10-15 06:50] VITALS: RESP 18
[2022-10-15] MEDS: NICOTINE 10 MG CARTRIDGE (INHALER) IH PRN (09:39)
[2022-10-15] MEDS: PRENATAL VITAMINS W/ FOLIC ACID TABLET (FP) PO SCH (09:39)
[2022-10-15] MEDS: MELATONIN 5 MG TABLETS PO SCH (21:35)
[2022-10-15] MEDS: THIAMINE HCL 100 MG TABLET (FP) PO SCH (21:35)
[2022-10-16 06:52] VITALS: BP 127/86; PULSE 76; TEMP 97.8
== END 2022-10-16 09:06 | disposition home or self-care (01) | DRG 772 ==
LOC: YASAS 09:23 → SUATTDRO 09:23 → Y3W 12:41
PROVIDERS: ADMIT Allergy & Immunology; ATTEND Psychiatry & Neurology Pain Medicine
PROC: HZ42ZZZ Group Counseling for Substance Abuse Treatment, Cognitive-Behavioral (ICD-10-PCS; principal; 2022-10-05)
DX: F14.20 Cocaine dependence, uncomplicated (principal); F10.20 Alcohol dependence, uncomplicated; F12.20 Cannabis dependence, uncomplicated; F17.210 Nicotine dependence, cigarettes, uncomplicated; F19.24 Other psychoactive substance dependence with psychoactive substance-induced mood disorder; G47.00 Insomnia, unspecified; Z86.59 Personal history of other mental and behavioral disorders; Z56.0 Unemployment, unspecified; Z59.00 Homelessness unspecified
CPT/HCPCS: 36415; 80053; 81003; 85027; 86780; 86803; C9803-CS; U0003; U0005

== ENCOUNTER 2022-12-21 13:40 | Inpatient (IN) | payer OTHER ==
[2022-12-21 15:43] VITALS: BMI 30.2
[2022-12-21] MEDS ORDERED: ACETAMINOPHEN 325 MG TABLET (FP) PO PRN (15:45)
[2022-12-21] MEDS ORDERED: BENZONATATE 200 MG CAPSULE PO PRN (15:45)
[2022-12-21] MEDS ORDERED: BENZOCAINE/MENTHOL (CHLORASEPTIC ) LOZENGE MM PRN (15:45)
[2022-12-21] MEDS ORDERED: POLYETHYLENE GLYCOL (HEALTHYLAX) 3350 17 GM PACKET PO PRN (15:45)
[2022-12-21] MEDS ORDERED: MAG HYDROX/AL HYDROX/SIMETH 30 ML UNIT-DOSE CUP PO PRN (15:45)
[2022-12-21] MEDS ORDERED: IBUPROFEN 400 MG TABLET (FP) PO PRN (15:45)
[2022-12-21] MEDS ORDERED: guaiFENesin 600 MG TABLET.ER (FP) PO PRN (15:45)
[2022-12-21] MEDS ORDERED: LOPERAMIDE HCL 2 MG CAPSULE PO PRN (15:45)
[2022-12-21] MEDS ORDERED: MAGNESIUM HYDROX 2400MG/30ML ORAL SUSPENSION 30 ML CUP PO PRN (15:45)
[2022-12-21] MEDS ORDERED: IBUPROFEN 600 MG TABLET (FP) PO PRN (15:45)
[2022-12-21] MEDS ORDERED: NALOXONE HCL 0.4 MG/ML VIAL IM PRN (15:45)
[2022-12-21] MEDS ORDERED: NALOXONE HCL (KLOXXADO) 8 MG SPRAY NS PRN (15:45)
[2022-12-21] MEDS: NICOTINE 10 MG CARTRIDGE (INHALER) IH PRN (21:50)
[2022-12-21] MEDS: MELATONIN 5 MG TABLETS PO SCH (21:50)
[2022-12-21] MEDS: THIAMINE HCL 100 MG TABLET (FP) PO SCH (21:50)
[2022-12-22] MEDS: PRENATAL VITAMINS W/ FOLIC ACID TABLET (FP) PO SCH (10:45)
[2022-12-22 10:59] LABS: HEMATOCRIT 39.9 % (35.4-49); HEMOGLOBIN 13.4 GM/dL (11.7-16.9); MCHC 33.7 g/dl (32.0-35.9); MEAN CELL VOLUME 86.2 fl (80-96); MEAN PLT VOLUME 8.9 fl (7.5-11.1); PLATELET COUNT 152 10^3/uL (134-434); RBC 4.63 M/mm3 (4.00-5.60); RDW 14.8 % (11.9-15.9); WHITE BLOOD COUNT 5.8 K/mm3 (4.0-10.0)
[2022-12-22 11:17] LABS: CALCIUM 8.2 mg/dL (8.5-10.1)
[2022-12-22 11:18] LABS: BLOOD UREA NITROGEN 15.6 mg/dL (7-18)
[2022-12-22 11:23] LABS: BILIRUBIN,TOTAL 0.5 mg/dL (0.2-1); TOT PROT 5.6 g/dl (6.4-8.2)
[2022-12-22] MEDS: THIAMINE HCL 100 MG TABLET (FP) PO SCH (22:20)
[2022-12-22] MEDS: MELATONIN 5 MG TABLETS PO SCH (22:20)
[2022-12-23] MEDS: PRENATAL VITAMINS W/ FOLIC ACID TABLET (FP) PO SCH (09:37)
[2022-12-23] MEDS: NICOTINE 10 MG CARTRIDGE (INHALER) IH PRN (09:37)
[2022-12-23] MEDS: THIAMINE HCL 100 MG TABLET (FP) PO SCH (21:08)
[2022-12-23] MEDS: MELATONIN 5 MG TABLETS PO SCH (21:08)
[2022-12-23] MEDS: hydrOXYzine PAMOATE 25 MG CAPSULE (FP) PO PRN (21:08)
[2022-12-24] MEDS: PRENATAL VITAMINS W/ FOLIC ACID TABLET (FP) PO SCH (10:30)
[2022-12-24] MEDS: NICOTINE 10 MG CARTRIDGE (INHALER) IH PRN ×2 (10:31→15:50)
[2022-12-24] MEDS: THIAMINE HCL 100 MG TABLET (FP) PO SCH (21:02)
[2022-12-24] MEDS: MELATONIN 5 MG TABLETS PO SCH (21:02)
[2022-12-24] MEDS: hydrOXYzine PAMOATE 25 MG CAPSULE (FP) PO PRN (21:03)
[2022-12-25 06:44] VITALS: RESP 18
[2022-12-25] MEDS: NICOTINE 10 MG CARTRIDGE (INHALER) IH PRN ×2 (09:50→19:35)
[2022-12-25] MEDS: PRENATAL VITAMINS W/ FOLIC ACID TABLET (FP) PO SCH (09:50)
[2022-12-25] MEDS: MELATONIN 5 MG TABLETS PO SCH (21:37)
[2022-12-25] MEDS: THIAMINE HCL 100 MG TABLET (FP) PO SCH (21:37)
[2022-12-25] MEDS: hydrOXYzine PAMOATE 25 MG CAPSULE (FP) PO PRN (21:38)
[2022-12-26] MEDS: PRENATAL VITAMINS W/ FOLIC ACID TABLET (FP) PO SCH (09:47)
[2022-12-26] MEDS: NICOTINE 10 MG CARTRIDGE (INHALER) IH PRN (09:48)
[2022-12-26] MEDS: MELATONIN 5 MG TABLETS PO SCH (21:17)
[2022-12-26] MEDS: hydrOXYzine PAMOATE 25 MG CAPSULE (FP) PO PRN (21:17)
[2022-12-26] MEDS: THIAMINE HCL 100 MG TABLET (FP) PO SCH (21:17)
[2022-12-27] MEDS: NICOTINE 10 MG CARTRIDGE (INHALER) IH PRN ×2 (10:08→21:05)
[2022-12-27] MEDS: PRENATAL VITAMINS W/ FOLIC ACID TABLET (FP) PO SCH (10:08)
[2022-12-27] MEDS: THIAMINE HCL 100 MG TABLET (FP) PO SCH (21:05)
[2022-12-27] MEDS: MELATONIN 5 MG TABLETS PO SCH (21:05)
[2022-12-27] MEDS: hydrOXYzine PAMOATE 25 MG CAPSULE (FP) PO PRN (21:05)
[2022-12-28] MEDS: PRENATAL VITAMINS W/ FOLIC ACID TABLET (FP) PO SCH (10:03)
[2022-12-28] MEDS: NICOTINE 10 MG CARTRIDGE (INHALER) IH PRN (10:03)
[2022-12-28] MEDS: hydrOXYzine PAMOATE 25 MG CAPSULE (FP) PO PRN (21:30)
[2022-12-28] MEDS: THIAMINE HCL 100 MG TABLET (FP) PO SCH (21:30)
[2022-12-28] MEDS: MELATONIN 5 MG TABLETS PO SCH (21:30)
[2022-12-29] MEDS: PRENATAL VITAMINS W/ FOLIC ACID TABLET (FP) PO SCH (09:30)
[2022-12-29] MEDS: NICOTINE 10 MG CARTRIDGE (INHALER) IH PRN (09:30)
[2022-12-29] MEDS: THIAMINE HCL 100 MG TABLET (FP) PO SCH (21:38)
[2022-12-29] MEDS: MELATONIN 5 MG TABLETS PO SCH (21:38)
[2022-12-29] MEDS: hydrOXYzine PAMOATE 25 MG CAPSULE (FP) PO PRN (21:38)
[2022-12-30 07:07] VITALS: BP 134/80; PULSE 71; TEMP 97.3
[2022-12-30] MEDS: PRENATAL VITAMINS W/ FOLIC ACID TABLET (FP) PO SCH (10:18)
== END 2022-12-30 10:57 | disposition home or self-care (01) | DRG 772 ==
LOC: YASAS 13:40 → Y3W 20:53 → Y3N 12-22 09:56 → Y3W 12-22 09:58
PROVIDERS: ADMIT Allergy & Immunology; ATTEND Psychiatry & Neurology Pain Medicine
PROC: HZ42ZZZ Group Counseling for Substance Abuse Treatment, Cognitive-Behavioral (ICD-10-PCS; principal; 2022-12-21)
DX: F14.20 Cocaine dependence, uncomplicated (principal); F12.20 Cannabis dependence, uncomplicated; F17.210 Nicotine dependence, cigarettes, uncomplicated; F31.9 Bipolar disorder, unspecified
CPT/HCPCS: 36415; 80053; 85027; 86780; C9803-CS; U0003; U0005

== ENCOUNTER 2023-04-16 13:04 | Inpatient (IN) | payer OTHER ==
[2023-04-16 14:31] VITALS: BMI 28.4
[2023-04-16] MEDS ORDERED: BENZONATATE 200 MG CAPSULE PO PRN (16:27)
[2023-04-16] MEDS ORDERED: DICYCLOMINE HCL 10 MG CAPSULE PO PRN (16:27)
[2023-04-16] MEDS ORDERED: NICOTINE 10 MG CARTRIDGE (INHALER) IH PRN (16:27)
[2023-04-16] MEDS ORDERED: MAG HYDROX/AL HYDROX/SIMETH 30 ML UNIT-DOSE CUP PO PRN (16:27)
[2023-04-16] MEDS ORDERED: guaiFENesin 600 MG TABLET.ER (FP) PO PRN (16:27)
[2023-04-16] MEDS ORDERED: BISMUTH SUBSALICYLATE 524 MG/30 ML PO PRN (16:27)
[2023-04-16] MEDS ORDERED: NALOXONE HCL 0.4 MG/ML VIAL IM PRN (16:27)
[2023-04-16] MEDS ORDERED: MAGNESIUM HYDROX 2400MG/30ML ORAL SUSPENSION 30 ML CUP PO PRN (16:27)
[2023-04-16] MEDS ORDERED: ACETAMINOPHEN 325 MG TABLET (FP) PO PRN (16:27)
[2023-04-16] MEDS ORDERED: hydrOXYzine PAMOATE 25 MG CAPSULE (FP) PO PRN (16:27)
[2023-04-16] MEDS ORDERED: METHOCARBAMOL 500 MG TABLET PO PRN (16:27)
[2023-04-16] MEDS ORDERED: NALOXONE HCL (KLOXXADO) 8 MG SPRAY NS PRN (16:27)
[2023-04-16] MEDS ORDERED: IBUPROFEN 400 MG TABLET (FP) PO PRN (16:27)
[2023-04-16] MEDS ORDERED: BENZOCAINE/MENTHOL (CHLORASEPTIC ) LOZENGE MM PRN (16:27)
[2023-04-16] MEDS ORDERED: ONDANSETRON *ODT* 4 MG TABLET SL PRN (16:27)
[2023-04-16] MEDS ORDERED: chlordiazePOXIDE HCL 25 MG CAPSULE PO PRN (16:27)
[2023-04-16] MEDS ORDERED: LOPERAMIDE HCL 2 MG CAPSULE PO PRN (16:27)
[2023-04-16] MEDS ORDERED: POLYETHYLENE GLYCOL (HEALTHYLAX) 3350 17 GM PACKET PO PRN (16:27)
[2023-04-16] MEDS ORDERED: chlordiazePOXIDE HCL 25 MG CAPSULE ONE (17:57)
[2023-04-16] MEDS: chlordiazePOXIDE HCL 25 MG CAPSULE PO SCH ×2 (17:58→22:33)
[2023-04-16] MEDS: IBUPROFEN 600 MG TABLET (FP) PO PRN (19:09)
[2023-04-16] MEDS: MELATONIN 5 MG TABLETS PO SCH (22:33)
[2023-04-16] MEDS: THIAMINE HCL 100 MG TABLET (FP) PO SCH (22:33)
[2023-04-17] MEDS: chlordiazePOXIDE HCL 25 MG CAPSULE PO SCH ×4 (05:50→23:40)
[2023-04-17] MEDS: PRENATAL VITAMINS W/ FOLIC ACID TABLET (FP) PO SCH (10:36)
[2023-04-17 10:39] LABS: POTASSIUM 4.4 mmol/L (3.5-5.1)
[2023-04-17 10:41] LABS: CALCIUM 8.6 mg/dL (8.5-10.1)
[2023-04-17 10:42] LABS: BLOOD UREA NITROGEN 20.2 mg/dL (7-18)
[2023-04-17 10:46] LABS: BILIRUBIN,TOTAL 0.1 mg/dL (0.2-1); TOT PROT 5.8 g/dl (6.4-8.2)
[2023-04-17 10:56] LABS: HEMATOCRIT 41.8 % (35.4-49); HEMOGLOBIN 13.9 GM/dL (11.7-16.9); MCH 29.2 pg (25.7-33.7); MCHC 33.2 g/dl (32.0-35.9); MEAN CELL VOLUME 87.7 fl (80-96); MEAN PLT VOLUME 9.4 fl (7.5-11.1); PLATELET COUNT 164 10^3/uL (134-434); RBC 4.76 M/mm3 (4.00-5.60); WHITE BLOOD COUNT 6.6 K/mm3 (4.0-10.0)
[2023-04-17] MEDS: IBUPROFEN 600 MG TABLET (FP) PO PRN (18:57)
[2023-04-17] MEDS: MELATONIN 5 MG TABLETS PO SCH (23:39)
[2023-04-17] MEDS: THIAMINE HCL 100 MG TABLET (FP) PO SCH (23:40)
[2023-04-18] MEDS: chlordiazePOXIDE HCL 25 MG CAPSULE PO SCH ×2 (06:00→11:17)
[2023-04-18 07:00] VITALS: PULSE 68
[2023-04-18 09:24] VITALS: BP 150/76; RESP 18; TEMP 96.9
[2023-04-18] MEDS: PRENATAL VITAMINS W/ FOLIC ACID TABLET (FP) PO SCH (11:17)
[2023-04-19] MEDS ORDERED: chlordiazePOXIDE HCL 10 MG CAPSULE PO PRN
[2023-04-19] MEDS ORDERED: chlordiazePOXIDE HCL 10 MG CAPSULE PO SCH (05:00)
[2023-04-20] MEDS ORDERED: chlordiazePOXIDE HCL 10 MG CAPSULE PO SCH (05:00)
[2023-04-21] MEDS ORDERED: chlordiazePOXIDE HCL 10 MG CAPSULE PO ONE (05:00)
== END 2023-04-18 12:25 | disposition left against medical advice (07) | DRG 770 ==
LOC: YASAS 13:04 → Y6N 18:30
PROVIDERS: ADMIT Allergy & Immunology; ATTEND Surgery
PROC: HZ2ZZZZ Detoxification Services for Substance Abuse Treatment (ICD-10-PCS; principal; 2023-04-16)
DX: F10.230 Alcohol dependence with withdrawal, uncomplicated (principal); F14.20 Cocaine dependence, uncomplicated; F12.20 Cannabis dependence, uncomplicated; F17.210 Nicotine dependence, cigarettes, uncomplicated; F31.81 Bipolar II disorder; F19.24 Other psychoactive substance dependence with psychoactive substance-induced mood disorder; R26.89 Other abnormalities of gait and mobility; R63.4 Abnormal weight loss; Z68.28 Body mass index [BMI] 28.0-28.9, adult; Z59.00 Homelessness unspecified
CPT/HCPCS: 36415; 80053; 85027; 86780; 87635

== ENCOUNTER 2023-06-13 14:43 | Inpatient (IN) | payer OTHER ==
[2023-06-13 17:39] VITALS: BMI 27.6
[2023-06-13] MEDS ORDERED: BENZONATATE 200 MG CAPSULE PO PRN (19:02)
[2023-06-13] MEDS ORDERED: POLYETHYLENE GLYCOL (HEALTHYLAX) 3350 17 GM PACKET PO PRN (19:02)
[2023-06-13] MEDS ORDERED: P-EPHED 60MG/TRIPROLIDI 2.5MG TABLET PO PRN (19:02)
[2023-06-13] MEDS ORDERED: IBUPROFEN 400 MG TABLET (FP) PO PRN (19:02)
[2023-06-13] MEDS ORDERED: AMMONIUM LACTATE 12% LOTION 225 GM BOTTLE TP PRN (19:02)
[2023-06-13] MEDS ORDERED: BENZOCAINE/MENTHOL (CHLORASEPTIC ) LOZENGE MM PRN (19:02)
[2023-06-13] MEDS ORDERED: MAG HYDROX/AL HYDROX/SIMETH 30 ML UNIT-DOSE CUP PO PRN (19:02)
[2023-06-13] MEDS ORDERED: guaiFENesin 600 MG TABLET.ER (FP) PO PRN (19:02)
[2023-06-13] MEDS ORDERED: ACETAMINOPHEN 325 MG TABLET (FP) PO PRN (19:02)
[2023-06-13] MEDS ORDERED: NICOTINE POLACRILEX 2 MG GUM BUC PRN (19:02)
[2023-06-13] MEDS ORDERED: hydrOXYzine PAMOATE 25 MG CAPSULE (FP) PO PRN (19:02)
[2023-06-13] MEDS ORDERED: COLLOIDAL OATMEAL 1 BAR EACH TP PRN (19:02)
[2023-06-13] MEDS ORDERED: LOPERAMIDE HCL 2 MG CAPSULE PO PRN (19:02)
[2023-06-13] MEDS: THIAMINE HCL 100 MG TABLET (FP) PO SCH (22:41)
[2023-06-13] MEDS: MELATONIN 5 MG TABLETS PO SCH (22:41)
[2023-06-14 09:42] LABS: POTASSIUM 4.7 mmol/L (3.5-5.1)
[2023-06-14 09:47] LABS: HEMATOCRIT 45.4 % (35.4-49); HEMOGLOBIN 14.6 GM/dL (11.7-16.9); MCH 28.4 pg (25.7-33.7); MCHC 32.2 g/dl (32.0-35.9); MEAN CELL VOLUME 88.2 fl (80-96); MEAN PLT VOLUME 9.2 fl (7.5-11.1); PLATELET COUNT 193 10^3/uL (134-434); RBC 5.14 M/mm3 (4.00-5.60); RDW 14.4 % (11.9-15.9); WHITE BLOOD COUNT 5.4 K/mm3 (4.0-10.0)
[2023-06-14] MEDS: PRENATAL VITAMINS W/ FOLIC ACID TABLET (FP) PO SCH (09:52)
[2023-06-14] MEDS: IBUPROFEN 600 MG TABLET (FP) PO PRN (09:53)
[2023-06-14 10:01] LABS: CALCIUM 8.2 mg/dL (8.5-10.1)
[2023-06-14 10:02] LABS: ALBUMIN 3.6 g/dl (3.4-5.0); BLOOD UREA NITROGEN 16.2 mg/dL (7-18)
[2023-06-14 10:06] LABS: BILIRUBIN,TOTAL 0.7 mg/dL (0.2-1); TOT PROT 6.7 g/dl (6.4-8.2)
[2023-06-14 19:51] LABS: PH,URINE 5.5 (5.0-8.0); URINE APPEARANCE TURBID; URINE BILIRUBIN NEGATIVE (NEGATIVE); URINE COLOR YELLOW; URINE GLUCOSE (UA) NEGATIVE (NEGATIVE); URINE KETONE NEGATIVE (NEGATIVE); URINE LEUK ESTERASE NEGATIVE (NEGATIVE); URINE NITRITE NEGATIVE (NEGATIVE); URINE PROTEIN NEGATIVE (NEGATIVE)
[2023-06-14] MEDS: MELATONIN 5 MG TABLETS PO SCH (21:12)
[2023-06-14] MEDS: THIAMINE HCL 100 MG TABLET (FP) PO SCH (21:12)
[2023-06-15] MEDS: PRENATAL VITAMINS W/ FOLIC ACID TABLET (FP) PO SCH (09:58)
[2023-06-15] MEDS: THIAMINE HCL 100 MG TABLET (FP) PO SCH (21:02)
[2023-06-15] MEDS: MELATONIN 5 MG TABLETS PO SCH (21:02)
[2023-06-16] MEDS: PRENATAL VITAMINS W/ FOLIC ACID TABLET (FP) PO SCH (09:48)
[2023-06-16] MEDS: THIAMINE HCL 100 MG TABLET (FP) PO SCH (21:02)
[2023-06-16] MEDS: MELATONIN 5 MG TABLETS PO SCH (21:03)
[2023-06-17] MEDS: PRENATAL VITAMINS W/ FOLIC ACID TABLET (FP) PO SCH (10:21)
[2023-06-17] MEDS: THIAMINE HCL 100 MG TABLET (FP) PO SCH (21:08)
[2023-06-17] MEDS: MELATONIN 5 MG TABLETS PO SCH (21:08)
[2023-06-18] MEDS: MAGNESIUM HYDROX 2400MG/30ML ORAL SUSPENSION 30 ML CUP PO PRN (09:56)
[2023-06-18] MEDS: PRENATAL VITAMINS W/ FOLIC ACID TABLET (FP) PO SCH (09:56)
[2023-06-18] MEDS: THIAMINE HCL 100 MG TABLET (FP) PO SCH (21:19)
[2023-06-18] MEDS: MELATONIN 5 MG TABLETS PO SCH (21:19)
[2023-06-19] MEDS: PRENATAL VITAMINS W/ FOLIC ACID TABLET (FP) PO SCH (09:47)
[2023-06-19] MEDS: BACITRACIN 0.9 GM PACKET TP SCH ×2 (12:02→21:09)
[2023-06-19] MEDS: THIAMINE HCL 100 MG TABLET (FP) PO SCH (21:08)
[2023-06-19] MEDS: MELATONIN 5 MG TABLETS PO SCH (21:09)
[2023-06-19] MEDS: IBUPROFEN 600 MG TABLET (FP) PO PRN (21:09)
[2023-06-20] MEDS: MAGNESIUM HYDROX 2400MG/30ML ORAL SUSPENSION 30 ML CUP PO PRN (10:22)
[2023-06-20] MEDS: BACITRACIN 0.9 GM PACKET TP SCH ×2 (10:22→21:06)
[2023-06-20] MEDS: PRENATAL VITAMINS W/ FOLIC ACID TABLET (FP) PO SCH (10:23)
[2023-06-20] MEDS: THIAMINE HCL 100 MG TABLET (FP) PO SCH (21:06)
[2023-06-20] MEDS: MELATONIN 5 MG TABLETS PO SCH (21:06)
[2023-06-21] MEDS: PRENATAL VITAMINS W/ FOLIC ACID TABLET (FP) PO SCH (09:56)
[2023-06-21] MEDS: BACITRACIN 0.9 GM PACKET TP SCH ×2 (09:56→21:09)
[2023-06-21] MEDS: MAGNESIUM HYDROX 2400MG/30ML ORAL SUSPENSION 30 ML CUP PO PRN (19:54)
[2023-06-21] MEDS: THIAMINE HCL 100 MG TABLET (FP) PO SCH (21:09)
[2023-06-21] MEDS: MELATONIN 5 MG TABLETS PO SCH (21:09)
[2023-06-22] MEDS: PRENATAL VITAMINS W/ FOLIC ACID TABLET (FP) PO SCH (10:45)
[2023-06-22] MEDS: BACITRACIN 0.9 GM PACKET TP SCH ×2 (10:45→21:20)
[2023-06-22] MEDS: MELATONIN 5 MG TABLETS PO SCH (21:20)
[2023-06-22] MEDS: THIAMINE HCL 100 MG TABLET (FP) PO SCH (21:20)
[2023-06-23] MEDS: BACITRACIN 0.9 GM PACKET TP SCH (10:25)
[2023-06-23] MEDS: PRENATAL VITAMINS W/ FOLIC ACID TABLET (FP) PO SCH (10:25)
[2023-06-23] MEDS: CLINDAMYCIN PHOSPHATE 1% TOPICAL GEL 30 GM TUBE TP SCH (21:03)
[2023-06-23] MEDS: THIAMINE HCL 100 MG TABLET (FP) PO SCH (21:03)
[2023-06-23] MEDS: MELATONIN 5 MG TABLETS PO SCH (21:03)
[2023-06-24 07:12] VITALS: RESP 18
[2023-06-24] MEDS: PRENATAL VITAMINS W/ FOLIC ACID TABLET (FP) PO SCH (09:59)
[2023-06-24] MEDS: CLINDAMYCIN PHOSPHATE 1% TOPICAL GEL 30 GM TUBE TP SCH ×2 (09:59→21:21)
[2023-06-24] MEDS: THIAMINE HCL 100 MG TABLET (FP) PO SCH (21:21)
[2023-06-24] MEDS: MELATONIN 5 MG TABLETS PO SCH (21:21)
[2023-06-25 06:48] VITALS: BP 125/78; PULSE 67; TEMP 97.4
[2023-06-25] MEDS: PRENATAL VITAMINS W/ FOLIC ACID TABLET (FP) PO SCH (09:11)
[2023-06-25] MEDS: CLINDAMYCIN PHOSPHATE 1% TOPICAL GEL 30 GM TUBE TP SCH (09:11)
== END 2023-06-25 09:17 | disposition home or self-care (01) | DRG 772 ==
LOC: YASAS 14:43 → Y3E 22:27
PROVIDERS: ADMIT Allergy & Immunology; ATTEND Psychiatry & Neurology Pain Medicine
PROC: HZ42ZZZ Group Counseling for Substance Abuse Treatment, Cognitive-Behavioral (ICD-10-PCS; principal; 2023-06-13)
DX: F14.20 Cocaine dependence, uncomplicated (principal); F12.20 Cannabis dependence, uncomplicated; F17.210 Nicotine dependence, cigarettes, uncomplicated; F31.9 Bipolar disorder, unspecified; G47.00 Insomnia, unspecified; S90.811A Abrasion, right foot, initial encounter; L08.9 Local infection of the skin and subcutaneous tissue, unspecified; X58.XXXA Exposure to other specified factors, initial encounter; Y93.9 Activity, unspecified; Y92.9 Unspecified place or not applicable; Y99.9 Unspecified external cause status
CPT/HCPCS: 36415; 80053; 81003; 85027; 86780; 87635

== ENCOUNTER 2024-04-11 13:52 | Inpatient (IN) | payer OTHER ==
[2024-04-11 15:10] VITALS: BMI 27.6
[2024-04-11] MEDS ORDERED: MAG HYDROX/AL HYDROX/SIMETH 30 ML UNIT-DOSE CUP PO PRN (15:23)
[2024-04-11] MEDS ORDERED: P-EPHED 60MG/TRIPROLIDI 2.5MG TABLET PO PRN (15:23)
[2024-04-11] MEDS ORDERED: ONDANSETRON *ODT* 4 MG TABLET SL PRN (15:23)
[2024-04-11] MEDS ORDERED: BENZOCAINE/MENTHOL (CHLORASEPTIC ) LOZENGE MM PRN (15:23)
[2024-04-11] MEDS ORDERED: LOPERAMIDE HCL 2 MG CAPSULE PO PRN (15:23)
[2024-04-11] MEDS ORDERED: BENZONATATE 200 MG CAPSULE PO PRN (15:23)
[2024-04-11] MEDS ORDERED: NALOXONE HCL 0.4 MG/ML VIAL IM PRN (15:23)
[2024-04-11] MEDS ORDERED: BISMUTH SUBSALICYLATE 524 MG/30 ML PO PRN (15:23)
[2024-04-11] MEDS ORDERED: NALOXONE (NARCAN) HCL 4 MG/0.1 ML SPRAY NS PRN (15:23)
[2024-04-11] MEDS ORDERED: IBUPROFEN 400 MG TABLET (FP) PO PRN (15:23)
[2024-04-11] MEDS ORDERED: guaiFENesin 600 MG TABLET.ER (FP) PO PRN (15:23)
[2024-04-11] MEDS: MELATONIN 5 MG TABLETS PO SCH (22:22)
[2024-04-11] MEDS: hydrOXYzine PAMOATE 25 MG CAPSULE (FP) PO PRN (22:22)
[2024-04-11] MEDS: METHOCARBAMOL 500 MG TABLET PO PRN (22:22)
[2024-04-11] MEDS: THIAMINE 100 MG TABLET PO SCH (22:22)
[2024-04-12] MEDS ORDERED: diazePAM 5 MG TABLET PO PRN (07:56)
[2024-04-12] MEDS ORDERED: cloNIDine HCL 0.1 MG TABLET PO PRN (07:56)
[2024-04-12] MEDS: methaDONE HCL 10 MG TABLET (FOR DETOX USE ONLY) PO ONE (08:51)
[2024-04-12] MEDS: PRENATAL VITAMINS W/ FOLIC ACID TABLET (FP) PO SCH (10:13)
[2024-04-12] MEDS: diazePAM 5 MG TABLET PO SCH (10:15)
[2024-04-12] MEDS: ERYTHROMYCIN 0.5% OPHTHALMIC OINTMENT 3.5 GM TUBE OS SCH (11:20)
[2024-04-12] MEDS: OFLOXACIN 0.3% OPHTHALMIC SOLUTION 5 ML BOTTLE OS SCH (11:20)
[2024-04-12] MEDS: NICOTINE POLACRILEX 2 MG LOZENGE BC PRN (12:43)
[2024-04-12] MEDS: MAGNESIUM HYDROX 2400MG/30ML ORAL SUSPENSION 30 ML CUP PO PRN (13:14)
[2024-04-12 14:02] LABS: HEMOGLOBIN 15.4 GM/dL (11.7-16.9); MCH 29.6 pg (25.7-33.7); MCHC 34.3 g/dl (32.0-35.9); MEAN CELL VOLUME 86.4 fl (80-96); MEAN PLT VOLUME 8.9 fl (7.5-11.1); PLATELET COUNT 184 10^3/uL (134-434); RBC 5.21 M/mm3 (4.00-5.60); RDW 13.7 % (11.9-15.9); WHITE BLOOD COUNT 6.8 K/mm3 (4.0-10.0)
[2024-04-12 14:17] LABS: CHLORIDE 102 mmol/L (98-107); SODIUM 142 mmol/L (136-145)
[2024-04-12 14:19] LABS: CALCIUM 8.9 mg/dL (8.5-10.1)
[2024-04-12 14:21] LABS: ALBUMIN 3.8 g/dl (3.4-5.0); ANION GAP 8 mmol/L (4-13); BLOOD UREA NITROGEN 20.8 mg/dL (7-18); CO2 31 mmol/L (21-32); GLUCOSE,RANDOM 87 mg/dL (74-106)
[2024-04-12 14:23] LABS: SGOT/AST 11 U/L (15-37); SGPT/ALT 19 U/L (13-61)
[2024-04-12 14:24] LABS: TOT PROT 7.2 g/dl (6.4-8.2)
[2024-04-12 14:26] LABS: ALK PHOS 79 U/L (45-117); BILIRUBIN,TOTAL 0.5 mg/dL (0.2-1)
[2024-04-12] MEDS: IBUPROFEN 600 MG TABLET (FP) PO PRN (19:21)
[2024-04-13] MEDS: ACETAMINOPHEN 325 MG TABLET (FP) PO PRN (17:13)
[2024-04-13] MEDS: NICOTINE POLACRILEX 2 MG GUM BUC PRN (19:02)
[2024-04-14] MEDS: diazePAM 5 MG TABLET PO SCH (05:54)
[2024-04-14] MEDS: methaDONE HCL 10 MG TABLET (FOR DETOX USE ONLY) PO ONE (09:56)
[2024-04-15] MEDS: diazePAM 5 MG TABLET PO SCH (06:06)
[2024-04-15] MEDS: BENZOCAINE 28 GM HEMORRHOIDAL OINTMENT RC PRN (11:24)
[2024-04-16] MEDS: diazePAM 5 MG TABLET PO ONE (05:53)
[2024-04-16] MEDS: methaDONE HCL 10 MG TABLET (FOR DETOX USE ONLY) PO ONE (09:54)
[2024-04-17] MEDS: DICYCLOMINE HCL 10 MG CAPSULE PO PRN (01:48)
[2024-04-17] MEDS: POLYETHYLENE GLYCOL (HEALTHYLAX) 3350 17 GM PACKET PO PRN (10:06)
[2024-04-18] MEDS: amLODIPine BESYLATE 2.5 MG TABLET (FP) PO SCH (17:15)
[2024-04-19 06:15] VITALS: PULSE 85
[2024-04-19 09:45] VITALS: BP 129/79; RESP 16; TEMP 97.8
== END 2024-04-19 10:27 | disposition home or self-care (01) | DRG 773 ==
LOC: YASAS 13:52 → Y6N 16:53
PROVIDERS: ADMIT Allergy & Immunology; ATTEND Surgery
PROC: HZ2ZZZZ Detoxification Services for Substance Abuse Treatment (ICD-10-PCS; principal; 2024-04-11)
DX: F11.23 Opioid dependence with withdrawal (principal); F10.230 Alcohol dependence with withdrawal, uncomplicated; F14.20 Cocaine dependence, uncomplicated; F12.20 Cannabis dependence, uncomplicated; F17.210 Nicotine dependence, cigarettes, uncomplicated
CPT/HCPCS: 36415; 80053; 80305; 80307; 85027; 86780; 93005; 93010

== ENCOUNTER 2024-06-10 17:06 | Inpatient (IN) | payer OTHER ==
[2024-06-10 17:39] VITALS: BMI 28.7
[2024-06-10] MEDS ORDERED: MAG HYDROX/AL HYDROX/SIMETH 30 ML UNIT-DOSE CUP PO PRN (17:50)
[2024-06-10] MEDS ORDERED: POLYETHYLENE GLYCOL (HEALTHYLAX) 3350 17 GM PACKET PO PRN (17:50)
[2024-06-10] MEDS ORDERED: NICOTINE POLACRILEX 2 MG LOZENGE BC PRN (17:50)
[2024-06-10] MEDS ORDERED: BENZOCAINE/MENTHOL (CHLORASEPTIC ) LOZENGE MM PRN (17:50)
[2024-06-10] MEDS ORDERED: ONDANSETRON *ODT* 4 MG TABLET SL PRN (17:50)
[2024-06-10] MEDS ORDERED: DICYCLOMINE HCL 10 MG CAPSULE PO PRN (17:50)
[2024-06-10] MEDS ORDERED: LOPERAMIDE HCL 2 MG CAPSULE PO PRN (17:50)
[2024-06-10] MEDS ORDERED: ACETAMINOPHEN 325 MG TABLET (FP) PO PRN (17:50)
[2024-06-10] MEDS ORDERED: NICOTINE POLACRILEX 2 MG GUM BUC PRN (17:50)
[2024-06-10] MEDS ORDERED: IBUPROFEN 600 MG TABLET (FP) PO PRN (17:50)
[2024-06-10] MEDS ORDERED: NALOXONE HCL 0.4 MG/ML VIAL IM PRN (17:50)
[2024-06-10] MEDS ORDERED: NALOXONE (NARCAN) HCL 4 MG/0.1 ML SPRAY NS PRN (17:50)
[2024-06-10] MEDS ORDERED: guaiFENesin 600 MG TABLET.ER (FP) PO PRN (17:50)
[2024-06-10] MEDS ORDERED: BENZONATATE 200 MG CAPSULE PO PRN (17:50)
[2024-06-10] MEDS ORDERED: BISMUTH SUBSALICYLATE 524 MG/30 ML PO PRN (17:50)
[2024-06-10] MEDS ORDERED: P-EPHED 60MG/TRIPROLIDI 2.5MG TABLET PO PRN (17:50)
[2024-06-10] MEDS ORDERED: IBUPROFEN 400 MG TABLET (FP) PO PRN (17:50)
[2024-06-10] MEDS ORDERED: cloNIDine HCL 0.1 MG TABLET PO PRN (17:51)
[2024-06-10] MEDS ORDERED: diazePAM 5 MG TABLET PO PRN (17:52)
[2024-06-10] MEDS: methaDONE HCL 10 MG TABLET (FOR DETOX USE ONLY) PO ONE (21:09)
[2024-06-10] MEDS: diazePAM 5 MG TABLET PO SCH (22:47)
[2024-06-10] MEDS: MELATONIN 5 MG TABLETS PO SCH (22:47)
[2024-06-10] MEDS: THIAMINE 100 MG TABLET PO SCH (22:47)
[2024-06-11] MEDS: METHOCARBAMOL 500 MG TABLET PO PRN (02:33)
[2024-06-11] MEDS: PRENATAL VITAMINS W/ FOLIC ACID TABLET (FP) PO SCH (10:03)
[2024-06-11 14:27] LABS: HEMATOCRIT 42.7 % (35.4-49); HEMOGLOBIN 14.2 GM/dL (11.7-16.9); MCH 28.9 pg (25.7-33.7); MCHC 33.3 g/dl (32.0-35.9); MEAN CELL VOLUME 86.8 fl (80-96); MEAN PLT VOLUME 8.5 fl (7.5-11.1); PLATELET COUNT 192 10^3/uL (134-434); RBC 4.92 M/mm3 (4.00-5.60); RDW 14.2 % (11.9-15.9); WHITE BLOOD COUNT 6.5 K/mm3 (4.0-10.0)
[2024-06-11 14:34] LABS: CHLORIDE 101 mmol/L (98-107); POTASSIUM 4.3 mmol/L (3.5-5.1); SODIUM 138 mmol/L (136-145)
[2024-06-11 14:41] LABS: SGPT/ALT 27 U/L (13-61)
[2024-06-11 14:42] LABS: SGOT/AST 26 U/L (15-37)
[2024-06-11 14:43] LABS: ALBUMIN 3.5 g/dl (3.4-5.0); ANION GAP 8 mmol/L (4-13); BILIRUBIN,TOTAL 0.9 mg/dL (0.2-1); BLOOD UREA NITROGEN 22.3 mg/dL (7-18); CO2 30 mmol/L (21-32)
[2024-06-11 14:44] LABS: ALK PHOS 71 U/L (45-117); GLUCOSE,RANDOM 85 mg/dL (74-106); TOT PROT 6.8 g/dl (6.4-8.2)
[2024-06-11] MEDS: traZODone HCL 50 MG TABLET (FP) PO SCH (21:57)
[2024-06-12] MEDS: diazePAM 5 MG TABLET PO SCH (05:48)
[2024-06-12] MEDS: methaDONE HCL 10 MG TABLET (FOR DETOX USE ONLY) PO ONE (10:10)
[2024-06-13] MEDS: diazePAM 5 MG TABLET PO SCH (05:46)
[2024-06-13] MEDS: DOCUSATE SODIUM 100 MG CAPSULE (FP) PO SCH (14:05)
[2024-06-14] MEDS: diazePAM 5 MG TABLET PO ONE (05:57)
[2024-06-14] MEDS: methaDONE HCL 10 MG TABLET (FOR DETOX USE ONLY) PO ONE (09:39)
[2024-06-14] MEDS: MAGNESIUM HYDROX 2400MG/30ML ORAL SUSPENSION 30 ML CUP PO PRN (13:46)
[2024-06-15 09:14] VITALS: BP 138/84; PULSE 68; RESP 16; TEMP 96.9
== END 2024-06-15 12:50 | disposition other institution (70) | DRG 773 ==
LOC: YASAS 17:06 → Y6N 18:00
PROVIDERS: ADMIT Allergy & Immunology; ATTEND Family Medicine Addiction Medicine
PROC: HZ2ZZZZ Detoxification Services for Substance Abuse Treatment (ICD-10-PCS; principal; 2024-06-10)
DX: F11.23 Opioid dependence with withdrawal (principal); F10.20 Alcohol dependence, uncomplicated; F14.20 Cocaine dependence, uncomplicated; F12.20 Cannabis dependence, uncomplicated; F17.210 Nicotine dependence, cigarettes, uncomplicated; F19.282 Other psychoactive substance dependence with psychoactive substance-induced sleep disorder; F31.9 Bipolar disorder, unspecified; Z59.02 Unsheltered homelessness
CPT/HCPCS: 36415; 80053; 80305; 80307; 85027; 87811

== ENCOUNTER 2024-06-15 12:53 | Inpatient (IN) | payer OTHER ==
[2024-06-15] MEDS ORDERED: MAG HYDROX/AL HYDROX/SIMETH 30 ML UNIT-DOSE CUP PO PRN (14:41)
[2024-06-15] MEDS ORDERED: NALOXONE HCL 0.4 MG/ML VIAL IVPUSH PRN (14:41)
[2024-06-15] MEDS ORDERED: LOPERAMIDE HCL 2 MG CAPSULE PO PRN (14:41)
[2024-06-15] MEDS ORDERED: guaiFENesin 600 MG TABLET.ER (FP) PO PRN (14:41)
[2024-06-15] MEDS ORDERED: BENZONATATE 200 MG CAPSULE PO PRN (14:41)
[2024-06-15] MEDS ORDERED: NALOXONE (NARCAN) HCL 4 MG/0.1 ML SPRAY NS PRN (14:41)
[2024-06-15] MEDS ORDERED: ACETAMINOPHEN 325 MG TABLET (FP) PO PRN (14:41)
[2024-06-15] MEDS ORDERED: IBUPROFEN 400 MG TABLET (FP) PO PRN (14:41)
[2024-06-15] MEDS ORDERED: BENZOCAINE/MENTHOL (CHLORASEPTIC ) LOZENGE MM PRN (14:41)
[2024-06-15] MEDS ORDERED: ONDANSETRON *ODT* 4 MG TABLET SL PRN (16:00)
[2024-06-15] MEDS ORDERED: DICYCLOMINE HCL 10 MG CAPSULE PO PRN (16:00)
[2024-06-15] MEDS ORDERED: BISMUTH SUBSALICYLATE 524 MG/30 ML PO PRN (16:00)
[2024-06-15] MEDS ORDERED: NICOTINE POLACRILEX 4 MG LOZENGE BC PRN (16:00)
[2024-06-15] MEDS ORDERED: NICOTINE POLACRILEX 4 MG GUM BUC PRN (16:00)
[2024-06-15] MEDS: PRENATAL VITAMINS W/ FOLIC ACID TABLET (FP) PO SCH (16:26)
[2024-06-15] MEDS: MELATONIN 5 MG TABLETS PO SCH (21:32)
[2024-06-15] MEDS: METHOCARBAMOL 500 MG TABLET PO PRN (21:32)
[2024-06-15] MEDS: traZODone HCL 50 MG TABLET (FP) PO SCH (21:33)
[2024-06-15] MEDS: THIAMINE 100 MG TABLET PO SCH (21:33)
[2024-06-15] MEDS ORDERED: MELATONIN 5 MG TABLETS PO SCH ×2 (22:00)
[2024-06-16] MEDS ORDERED: methaDONE HCL 10 MG TABLET PO SCH (06:00)
[2024-06-16] MEDS ORDERED: NICOTINE 21 MG/24 HOURS TOPICAL PATCH TD SCH (10:00)
[2024-06-16] MEDS: NICOTINE 14 MG/24 HOURS TOPICAL PATCH TD SCH (10:16)
[2024-06-16] MEDS: IBUPROFEN 600 MG TABLET (FP) PO PRN (12:45)
[2024-06-16 15:27] LABS: HIV INTERPRETATION NEGATIVE (NEGATIVE)
[2024-06-19] MEDS: POLYETHYLENE GLYCOL (HEALTHYLAX) 3350 17 GM PACKET PO PRN (21:29)
[2024-06-20] MEDS: cloNIDine HCL 0.1 MG TABLET PO PRN (10:21)
[2024-06-20] MEDS: hydrOXYzine PAMOATE 25 MG CAPSULE (FP) PO PRN (10:21)
[2024-06-22] MEDS: MAGNESIUM HYDROX 2400MG/30ML ORAL SUSPENSION 30 ML CUP PO PRN (09:41)
[2024-06-22] MEDS ORDERED: DOCUSATE SODIUM 100 MG CAPSULE (FP) PO PRN (15:21)
[2024-06-22] MEDS ORDERED: LACTULOSE 20 GM/30 ML UDC (FOR ORAL USE ONLY) PO PRN (15:21)
[2024-06-23 07:08] VITALS: RESP 18
[2024-06-25 06:56] VITALS: BP 138/86; PULSE 88; TEMP 97.4
== END 2024-06-25 20:20 | disposition left against medical advice (07) | DRG 772 ==
LOC: YASAS 12:53 → Y5N 12:55
PROVIDERS: ADMIT Psychiatry & Neurology Pain Medicine; ATTEND Psychiatry & Neurology Pain Medicine
PROC: HZ42ZZZ Group Counseling for Substance Abuse Treatment, Cognitive-Behavioral (ICD-10-PCS; principal; 2024-06-15)
DX: F11.20 Opioid dependence, uncomplicated (principal); F14.20 Cocaine dependence, uncomplicated; F10.20 Alcohol dependence, uncomplicated; F12.20 Cannabis dependence, uncomplicated; F17.210 Nicotine dependence, cigarettes, uncomplicated; F19.282 Other psychoactive substance dependence with psychoactive substance-induced sleep disorder; M54.50 Low back pain, unspecified; G89.29 Other chronic pain; F91.8 Other conduct disorders; Z91.199 Patient's noncompliance with other medical treatment and regimen due to unspecified reason
CPT/HCPCS: 36415; 82140; 86803; 87389

== ENCOUNTER 2025-02-11 12:12 | Inpatient (IN) | payer OTHER ==
[2025-02-11 12:32] VITALS: BMI 29.2
[2025-02-11] MEDS ORDERED: NICOTINE POLACRILEX 2 MG GUM BUC PRN (12:48)
[2025-02-11] MEDS ORDERED: IBUPROFEN 600 MG TABLET (FP) PO PRN (12:48)
[2025-02-11] MEDS ORDERED: ACETAMINOPHEN 325 MG TABLET (FP) PO PRN (12:48)
[2025-02-11] MEDS ORDERED: NICOTINE POLACRILEX 2 MG LOZENGE BC PRN (12:48)
[2025-02-11] MEDS ORDERED: POLYETHYLENE GLYCOL (HEALTHYLAX) 3350 17 GM PACKET PO PRN (12:48)
[2025-02-11] MEDS ORDERED: guaiFENesin 600 MG TABLET.ER (FP) PO PRN (12:48)
[2025-02-11] MEDS ORDERED: LOPERAMIDE HCL 2 MG CAPSULE PO PRN (12:48)
[2025-02-11] MEDS ORDERED: MAG HYDROX/AL HYDROX/SIMETH 30 ML UNIT-DOSE CUP PO PRN (12:48)
[2025-02-11] MEDS ORDERED: BENZONATATE 200 MG CAPSULE PO PRN (12:48)
[2025-02-11] MEDS ORDERED: NALOXONE (NARCAN) HCL 4 MG/0.1 ML SPRAY NS PRN (12:48)
[2025-02-11] MEDS ORDERED: MAGNESIUM HYDROX 2400MG/30ML ORAL SUSPENSION 30 ML CUP PO PRN (12:48)
[2025-02-11] MEDS ORDERED: BENZOCAINE/MENTHOL (CHLORASEPTIC ) LOZENGE MM PRN (12:48)
[2025-02-11] MEDS ORDERED: P-EPHED 60MG/TRIPROLIDI 2.5MG TABLET PO PRN (12:48)
[2025-02-11] MEDS ORDERED: IBUPROFEN 400 MG TABLET (FP) PO PRN (12:48)
[2025-02-11 14:35] VITALS: RESP 18
[2025-02-11] MEDS: THIAMINE 100 MG TABLET PO SCH (22:25)
[2025-02-11] MEDS: MELATONIN 5 MG TABLETS PO SCH (22:25)
[2025-02-12] MEDS ORDERED: hydrOXYzine PAMOATE 50 MG CAPSULE (FP) PO PRN (08:18)
[2025-02-12 10:00] LABS: HEMATOCRIT 43.7 % (40.1-51.0); HEMOGLOBIN 13.7 g/dL (13.7-17.5); MCHC 31.4 g/dl (32.3-36.5); MEAN CELL VOLUME 90.5 fl (79.0-92.2); MEAN PLT VOLUME 10.4 fl (9.4-12.4); PLATELET COUNT 206 x10^3/uL (163-337); RDW 13.7 % (12.1-15.9)
[2025-02-12 10:00] LABS: PH,URINE 7.5 (5.0-8.0); URINE APPEARANCE CLOUDY; URINE BILIRUBIN NEGATIVE (NEGATIVE); URINE COLOR YELLOW; URINE GLUCOSE (UA) NEGATIVE (NEGATIVE); URINE KETONE NEGATIVE (NEGATIVE); URINE LEUK ESTERASE NEGATIVE (NEGATIVE); URINE NITRITE NEGATIVE (NEGATIVE); URINE PROTEIN NEGATIVE (NEGATIVE); URINE UROBILINOGEN 0.2 mg/dL (0.2-1.0)
[2025-02-12 10:03] LABS: POTASSIUM 4.6 mmol/L (3.5-5.1)
[2025-02-12 10:10] LABS: ALBUMIN 3.2 g/dl (3.4-5.0); BLOOD UREA NITROGEN 16.9 mg/dL (7-18); CALCIUM 8.9 mg/dL (8.5-10.1)
[2025-02-12 10:14] LABS: BILIRUBIN,TOTAL 0.6 mg/dL (0.2-1); CREATININE 0.8 mg/dL (0.55-1.3)
[2025-02-12 10:15] LABS: TOT PROT 6.2 g/dl (6.4-8.2)
[2025-02-12 10:21] LABS: COCAINE, UR POSITIVE (NEGATIVE); METHADONE, UR NEGATIVE (NEGATIVE); OPIATES, URI NEGATIVE (NEGATIVE); PHENCYCLIDINE,URINE NEGATIVE (NEGATIVE); URINE AMPHETAMINES NEGATIVE (NEGATIVE); URINE BARBITURATES NEGATIVE (NEGATIVE); URINE BENZODIAZEPINES POSITIVE (NEGATIVE)
[2025-02-12] MEDS: PRENATAL VITAMINS W/ FOLIC ACID TABLET (FP) PO SCH (10:29)
[2025-02-12] MEDS: traZODone HCL 50 MG TABLET (FP) PO SCH (22:47)
[2025-02-13 06:32] VITALS: BP 120/77; PULSE 65; TEMP 97.7
== END 2025-02-13 07:50 | disposition left against medical advice (07) | DRG 770 ==
LOC: YASAS 12:12 → Y3NR 13:24
PROVIDERS: ADMIT Psychiatry & Neurology Pain Medicine; ATTEND Psychiatry & Neurology Pain Medicine
PROC: HZ42ZZZ Group Counseling for Substance Abuse Treatment, Cognitive-Behavioral (ICD-10-PCS; principal; 2025-02-11)
DX: F11.20 Opioid dependence, uncomplicated (principal); F14.20 Cocaine dependence, uncomplicated; F10.20 Alcohol dependence, uncomplicated; F12.20 Cannabis dependence, uncomplicated; F17.210 Nicotine dependence, cigarettes, uncomplicated; F19.282 Other psychoactive substance dependence with psychoactive substance-induced sleep disorder; F19.24 Other psychoactive substance dependence with psychoactive substance-induced mood disorder; Z59.01 Sheltered homelessness
CPT/HCPCS: 36415; 80053; 80305; 80307; 81003; 85027; 86780; 87811; 93005; 93010